=== PATIENT | female | born 1950 | race African-American/Black ===

== ENCOUNTER 2016-12-10 20:05 | Inpatient (IN) | payer BC ==
[2016-12-10 20:10] VITALS: BMI 41.9
--- NOTE | 2016-12-10 20:54 | PDOC ---
History of Present Illness - General History Source: Patient Exam Limitations: No Limitations - History of Present Illness Initial Comments: 12/10/16 21:19 The patient is a 66 year old female with a significant past medical history of HTN, HLD, and diabetes who presents to the ED with complaint of abdominal pain, nausea, and vomiting for 4 days. The patient reports an onset of mid epigastric pain radiating to her mid upper quadrant on Monday. She reports multiple episodes of nausea and vomiting. She states she is vomiting a yellow-like bile and her food. Patient reports she is unable to retain any food, including soup or jello, secondary to vomiting. She also reports one dizzy spell associated with present symptoms. Denies fevers or chills. Denies dysuria or changes in urinary output. Denies chest pain or shortness of breath. Denies hematochezia or hemoptysis. Denies any other symptoms Surgical hx: Appendicitis, tubal ligation Social hx: The patient is a smoker. PMD: Dr. Wyatt <Shilpa Stein - Last Filed: 12/10/16 21:19> <Renetta Crockett - Last Filed: 12/11/16 06:59> - General Chief Complaint: Nausea/Vomiting Stated Complaint: NAUSEA/VOMITING Time Seen by Provider: 12/10/16 20:50 Past History <Shilpa Stein - Last Filed: 12/10/16 21:19> - Past Medical History Diabetes: Yes HTN: Yes HIV: Yes Other medical history: glaucoma - Surgical History Appendectomy: Yes - Psycho/Social/Smoking Cessation Hx Suicidal Ideation: No Smoking History: Current every day smoker Number of Cigarettes Smoked Daily: 10 Information on smoking cessation initiated: No <Renetta Crockett - Last Filed: 12/11/16 06:59> - Past Medical History Allergies/Adverse Reactions: Allergies Allergy/AdvReac Type Severity Reaction Status Date / Time No Known Allergies Allergy Verified 12/10/16 20:10 Home Medications: Ambulatory Orders Glimepiride [Amaryl -] 4 mg PO BID 12/10/16 Glyburide [Diabeta -] 10 mg PO BID 12/10/16 Insulin NPH Human Isophane [Humulin N] 12 unit SQ BID 12/10/16 Lisinopril/Hydrochlorothiazide [Lisinopril-Hctz 20-25 mg Tab] 1 each PO DAILY Metformin HCl [Glucophage -] 850 mg PO TID 12/10/16 Omeprazole 20 mg PO PRN 12/10/16 Simvastatin 20 mg PO HS 12/10/16 Review of Systems - Review of Systems Able to Perform ROS?: Yes Comments:: 12/10/16 21:19 CONSTITUTIONAL: Absent: fever, chills, diaphoresis, generalized weakness, malaise, loss of appetite HEENT: Absent: rhinorrhea, nasal congestion, throat pain, throat swelling, difficulty swallowing, mouth swelling, ear pain, eye pain, visual Changes CARDIOVASCULAR: Absent: chest pain, syncope, palpitations, irregular heart rate, lightheadedness , peripheral edema RESPIRATORY: Absent: cough, shortness of breath, dyspnea with exertion, orthopnea, wheezing, stridor, hemoptysis GASTROINTESTINAL: + abdominal pain , nausea, vomiting Absent: abdominal distension, diarrhea, constipation, melena, hematochezia GENITOURINARY: Absent: dysuria, frequency, urgency, hesitancy, hematuria, flank pain, genital pain MUSCULOSKELETAL: Absent: myalgia, arthralgia, joint swelling SKIN: Absent: rash, itching, pallor HEMATOLOGIC/IMMUNOLOGIC: Absent: easy bleeding, easy bruising, lymphadenopathy, frequent infections ENDOCRINE: Absent: unexplained weight gain, unexplained weight loss, heat intolerance, cold intolerance NEUROLOGIC: + dizziness Absent: headache, focal weakness or paresthesias, unsteady gait, seizure, mental status changes, bladder or bowel incontinence PSYCHIATRIC: Absent: anxiety, depression, suicidal or homicidal ideation, hallucinations. All Other Systems: Reviewed and Negative <Shilpa Stein - Last Filed: 12/10/16 21:19> *Physical Exam - Vital Signs Last Vital Signs Temp Pulse Resp BP Pulse Ox 98.2 F 112 H 20 160/114 99 12/10/16 20:07 12/10/16 20:07 12/10/16 20:07 12/10/16 20:07 12/10/16 20:07 - Physical Exam Comments: 12/10/16 21:20 GENERAL: + Morbidly Obese. Awake and alert. No acute distress. HEENT: Normocephalic, atraumatic. PERRLA, EOMI. No conjunctival pallor. Sclera are non- icteric. Moist mucous membranes. Oropharynx is clear. NECK: Supple. Full ROM. No JVD. Carotid pulses 2+ and symmetric, without bruits. No thyromegaly. NCo lymphadenopathy. CARDIOVASCULAR: Regular rate and rhythm. No murmurs, rubs, or gallops. Distal pulses are 2+ and symmetric. PULMONARY: No evidence of respiratory distress. Lungs clear to auscultation bilaterally. No wheezing, rales or rhonchi. ABDOMINAL: + diffusely tender in the mid and right upper quadrant. Soft. Non-distended. No rebound or guarding. No organomegaly. Normoactive bowel sounds. MUSCULOSKELETAL Normal range of motion at all joints. No bony deformities or tenderness. No CVA tenderness. EXTREMITIES: No cyanosis. No clubbing. No edema. No calf tenderness. SKIN: Warm and dry. Normal capillary refill. No rashes. No jaundice. NEUROLOGICAL: Alert, awake, appropriate. Cranial nerves 2-12 intact. No deficits to light touch and temperature in face, upper extremities and lower extremities. No motor deficits in the in face, upper extremities and lower extremities. Normoreflexic in the upper and lower extremities. Normal speech. Toes are down- going bilaterally. Gait is normal without ataxia. PSYCHIATRIC: Cooperative. Good eye contact. Appropriate mood and affect. <Shilpa Stein - Last Filed: 12/10/16 21:19> - Vital Signs Last Vital Signs Temp Pulse Resp BP Pulse Ox 98.2 F 112 H 20 160/114 99 12/10/16 20:07 12/10/16 20:07 12/10/16 20:07 12/10/16 20:07 12/10/16 20:07 <Renetta Crockett - Last Filed: 12/11/16 06:59> ED Treatment Course - LABORATORY CBC & Chemistry Diagram: 12/10/16 21:30 12/10/16 23:40 <Renetta Crockett - Last Filed: 12/11/16 06:59> Medical Decision Making - Medical Decision Making 12/11/16 01:22 Pt comes with nausea and vomiting x 3 days, now with epigastric pain. She has EKG changes inferior flipped T waves. Troponin just came back positive - 1st specimen hemolyzed. RUQ pain, but sono GB is normal. CT abd pelvis still pending. Pt will be treated with lovenox and aspirin and a beta carla and she will be admitted to the telemetry unit. 12/11/16 01:55 Patient Name: Radha Blair THIS IS A PRELIMINARYREPORT FROM [facility] [employer] [facility] EXAM: CT abdomen and pelvis without contrast IMAGES: 511 INDICATION: Colitis. Rule out ileus or obstruction. DATE OF SERVICE: 2016-12-11 01:28:39.0 COMPARISON: none FINDINGS: Lung bases are clear. The visualized cardiac chambers are normal size and configuration. Normal unenhanced liver, gallbladder , pancreas, spleen, adrenal glands and kidneys. Small hiatal hernia is noted. The abdominal small and large bowel are normal. There is no aortic aneurysm. There is no significant retroperitoneal lymphadenopathy. Tiny fat containing umbilical hernia is noted. The pelvic small and large bowel are normal. There is no evidence of appendicitis, although the appendix is not clearly visualized. The uterus and adnexal structures are normal. Urinary bladder is unremarkable. There is no pelvic free fluid. No discrete pelvic lymphadenopathy is identified. IMPRESSION: No localizing signs for acute pathology. THIS DOCUMENT HAS BEEN ELECTRONICALLY SIGNED 12/11/16 06:58 Pt's 2nd cardiac enzyme is positive also. She is still awaiting a telemetry bed. <Renetta Crockett - Last Filed: 12/11/16 06:59> *DC/Admit/Observation/Transfer - Attestations Scribe Attestion: 12/10/16 21:20 Documentation prepared by Shilpa Stein, acting as medical transcription radiology for Renetta Crockett MD <Shilpa Stein - Last Filed: 12/10/16 21:19> - Discharge Dispostion Admit: Yes <Renetta Crockett - Last Filed: 12/11/16 06:59> Diagnosis at time of Disposition: Nausea & vomiting, Myocardial infarction, Ischemia, HTN (hypertension), Diabetes, Hypercholesterolemia, Morbid obesity
[2016-12-10] MEDS ORDERED: FAMOTIDINE 20 MG/50 ML IVPB 50 ML IVPB ONE ×2 (20:55→21:03)
[2016-12-10] MEDS ORDERED: ONDANSETRON 4 MG/2 ML VIAL IVPB ONE (20:55)
[2016-12-10] MEDS ORDERED: SODIUM CHLORIDE 0.9% 500 ML INFUS.BAG IV ONE (20:56)
[2016-12-10] MEDS ORDERED: dilTIAZem HCL 50 MG/10 ML - 10 ML VIAL IVPUSH ONE (20:56)
[2016-12-10] MEDS ORDERED: dilTIAZem HCL 125 MG/25 ML - 25 ML VIAL ONE (21:03)
[2016-12-10] MEDS ORDERED: ONDANSETRON 4 MG/2 ML VIAL ONE (21:03)
[2016-12-10 21:38] LABS: BASOPHIL 1.1 % (0-2.0); EOSINOPHIL 0.3 % (0-4.5); MCH 29.8 pg (25.7-33.7); MCHC 32.8 g/dl (32.0-36.0); MEAN CELL VOLUME 90.8 fl (80-96); MEAN PLT VOLUME 7.7 fl (7.5-11.1); NEUTROPHILS 68.7 % (42.8-82.8); PLATELET COUNT 342 K/MM3 (134-434); RDW 14.2 % (11.6-15.6); WHITE BLOOD COUNT 8.7 K/mm3 (4.0-10.0)
[2016-12-10] MEDS ORDERED: morphine CARPU-JECT 2 MG/1 ML DISP.SYRIN IVPUSH ONE (21:53)
[2016-12-10] MEDS ORDERED: morphine CARPU-JECT 2 MG/1 ML DISP.SYRIN ONE (21:58)
[2016-12-11 00:20] LABS: ALBUMIN 3.9 g/dl (3.4-5.0); ANION GAP 14 (8-16); BILIRUBIN,TOTAL 0.6 mg/dL (0.2-1.0); CALCIUM 9.5 mg/dL (8.5-10.1); CO2 27 mmol/L (21-32); COCKROFT - GAULT 117.5635; CREATININE 0.9 mg/dL (0.55-1.02); GLUCOSE,RANDOM 271 mg/dL (74-106); SGOT/AST 13 U/L (15-37); SGPT/ALT 18 U/L (12-78)
[2016-12-11 00:21] LABS: ALK PHOS 83 U/L (45-117)
[2016-12-11 00:50] LABS: TROPONIN I 0.12 ng/ml (0.00-0.05)
[2016-12-11] MEDS ORDERED: ASPIRIN 81 MG CHEWABLE TABLETS PO ONE (01:19)
[2016-12-11] MEDS ORDERED: METOPROLOL TARTRATE 50 MG TABLET (FP) PO ONE (01:22)
[2016-12-11] MEDS ORDERED: ASPIRIN 81 MG CHEWABLE TABLETS ONE (01:26)
[2016-12-11] MEDS ORDERED: ENOXAPARIN NA (PORCINE) 60 MG/0.6 ML DISP.SYRIN SQ ONE (01:26)
[2016-12-11] MEDS ORDERED: ENOXAPARIN NA (PORCINE) 120 MG/0.8 ML DISP.SYRIN SQ SCH (01:30)
[2016-12-11] MEDS ORDERED: METOPROLOL TARTRATE 50 MG TABLET (FP) ONE (01:51)
[2016-12-11 06:04] LABS: TROPONIN I 0.13 ng/ml (0.00-0.05)
--- NOTE | 2016-12-11 08:35 | CON.CARD ---
Consult Consult Specialty:: Cardiology - History of Present Illness Chief Complaint: epigastric pain History of Present Illness: he patient is a 66 year old female with a significant past medical history of HTN, HLD, and diabetes who presents to the ED with complaint of abdominal pain, nausea, and vomiting for 4 days. The patient reports an onset of mid epigastric pain radiating to her mid upper quadrant on Monday. She reports multiple episodes of nausea and vomiting. She states she is vomiting a yellow-like bile and her food. Patient reports she is unable to retain any food, including soup or jello, secondary to vomiting. She also reports one dizzy spell associated with present symptoms. Denies fevers or chills. Denies dysuria or changes in urinary output. Denies chest pain or shortness of breath. Denies hematochezia or hemoptysis. Denies any other symptoms Surgical hx: Appendicitis, tubal ligation Social hx: The patient is a smoker. PMD: Dr. Wyatt - Past Medical History Cardio/Vascular: Yes: HTN, Hyperlipdemia Endocrine: Yes: Diabetes Mellitus - Smoking History Smoking history: Current every day smoker Aproximately how many cigarettes per day: 10 Home Medications - Allergies Allergies/Adverse Reactions: Allergies Allergy/AdvReac Type Severity Reaction Status Date / Time No Known Allergies Allergy Verified 12/10/16 20:10 - Home Medications Home Medications: Ambulatory Orders Glimepiride [Amaryl -] 4 mg PO BID 12/10/16 Glyburide [Diabeta -] 10 mg PO BID 12/10/16 Insulin NPH Human Isophane [Humulin N] 12 unit SQ BID 12/10/16 Lisinopril/Hydrochlorothiazide [Lisinopril-Hctz 20-25 mg Tab] 1 each PO DAILY Metformin HCl [Glucophage -] 850 mg PO TID 12/10/16 Omeprazole 20 mg PO PRN 12/10/16 Simvastatin 20 mg PO HS 12/10/16 Review of Systems - Review of Systems Constitutional: reports: No Symptoms Eyes: reports: No Symptoms HENT: reports: No Symptoms Neck: reports: No Symptoms Cardiovascular: reports: No Symptoms Gastrointestinal: reports: Abdominal Pain, Nausea, Vomiting Genitourinary: reports: No Symptoms Breasts: reports: No Symptoms Reported Musculoskeletal: reports: No Symptoms Integumentary: reports: No Symptoms Neurological: reports: No Symptoms Endocrine: reports: No Symptoms Hematology/Lymphatic: reports: No Symptoms Psychiatric: reports: No Symptoms Vital Signs: Vital Signs Temperature 98 F 12/11/16 06:44 Pulse Rate 71 12/11/16 06:44 Respiratory Rate 17 12/11/16 06:44 Blood Pressure 160/83 12/11/16 06:44 O2 Sat by Pulse Oximetry (%) 99 12/11/16 06:44 Constitutional: Yes: Well Nourished, No Distress, Calm Eyes: Yes: WNL, Conjunctiva Clear, EOM Intact HENT: Yes: WNL, Atraumatic, Normocephalic Neck: Yes: WNL, Supple, Trachea Midline Respiratory: Yes: WNL, Regular, CTA Bilaterally Gastrointestinal: Yes: WNL, Normal Bowel Sounds Renal/: Yes: WNL Cardiovascular: Yes: WNL, Regular Rate and Rhythm Musculoskeletal: Yes: WNL Extremities: Yes: WNL Integumentary: Yes: WNL Neurological: Yes: WNL, Alert, Oriented ...Motor Strength: WNL Psychiatric: Yes: WNL, Alert, Oriented - Other Data Labs, Other Data: Troponin, BNP 12/11/16 05:31 Troponin I 0.13 H Troponin, BNP 12/11/16 05:31 Troponin I 0.13 H Imaging - Results Chest X-ray: Pending EKG: Image Reviewed (sr judson mcwilliams) Problem List - Problems (1) Diabetes Code(s): E11.9 - TYPE 2 DIABETES MELLITUS WITHOUT COMPLICATIONS (2) HTN (hypertension) Code(s): I10 - ESSENTIAL (PRIMARY) HYPERTENSION (3) Hypercholesterolemia Code(s): E78.00 - PURE HYPERCHOLESTEROLEMIA, UNSPECIFIED (4) Ischemia Code(s): I99.8 - OTHER DISORDER OF CIRCULATORY SYSTEM (5) Morbid obesity Code(s): E66.01 - MORBID (SEVERE) OBESITY DUE TO EXCESS CALORIES (6) Myocardial infarction Code(s): I21.3 - ST ELEVATION (STEMI) MYOCARDIAL INFARCTION OF UNSP SITE (7) Nausea & vomiting Code(s): R11.2 - NAUSEA WITH VOMITING, UNSPECIFIED Assessment/Plan abd pain abn ekg unchange from yestreday - lead placement . No chnge in lateral leads from 2010. new IW leads changes ? LVH rep abn borderline elevated TNIs nl ck dm x 25 yars htn hld gi eval Plan r/o acs lovonox bb iv ntg asa/plavic cycle enzymes if tni increse will need urgent c. cath GI eval
[2016-12-11] MEDS ORDERED: ONDANSETRON 4 MG/2 ML VIAL IVPUSH PRN (09:38)
[2016-12-11] MEDS ORDERED: SODIUM CHLORIDE 0.45% 1,000 ML IV SCH (09:45)
[2016-12-11] MEDS: NITROGLYCERIN 25MG/D5W 250ML 250 ML IVPB SCH (09:50)
[2016-12-11] MEDS: ENOXAPARIN NA (PORCINE) 120 MG/0.8 ML DISP.SYRIN SQ SCH ×2 (09:50→22:50)
[2016-12-11] MEDS ORDERED: ONDANSETRON 4 MG/2 ML VIAL ONE (09:53)
[2016-12-11] MEDS ORDERED: ENOXAPARIN NA (PORCINE) 40 MG/0.4 ML DISP.SYRIN SQ ONE (09:53)
[2016-12-11] MEDS ORDERED: NITROGLYCERIN 25MG/D5W 250ML 250 ML IVPB ONE (09:53)
[2016-12-11] MEDS ORDERED: ENOXAPARIN NA (PORCINE) 100 MG/1 ML DISP.SYRIN SQ ONE (09:53)
[2016-12-11] MEDS ORDERED: CLOPIDOGREL BISULFATE 300 MG TABLET PO ONE (10:00)
[2016-12-11] MEDS ORDERED: PANTOPRAZOLE 40 MG TABLET (FP) PO SCH (10:00)
--- NOTE | 2016-12-11 10:46 | HP ---
DATE OF ADMISSION: 12/11/2016 CHIEF COMPLAINT: Nausea and vomiting. HISTORY OF PRESENT ILLNESS: This is a 67-year-old lady with past medical history of hypertension, diabetes, hypercholesterolemia, smoking. She came to ER with a 3-day history of unable to eat anything and nausea and vomiting. In the ER, she was given medicine for nausea and vomiting and blood work was done and she had high troponin and cardiac enzyme borderline high. She denies any chest pain. She also had a CT scan in the ER, which was normal, and also ultrasound of the abdomen, which was normal as well. She was admitted to the hospital for nausea and vomiting and also axt-[id number]-pqlcyygue myocardial infarction. PAST MEDICAL HISTORY: As above. No drug allergies. She lives with her family and she is a smoker and she retired from [employer]. REVIEW OF SYSTEMS: Positive for nausea and vomiting. Negative for chest pain, shortness of breath. Positive for diabetes, positive for hyperlipidemia. Negative for stroke, skin rash, or anything else. PHYSICAL EXAMINATION: General: A middle-aged woman, lying in bed comfortable. Vital Signs: Blood pressure 135/80, respirations 12, temperature 98. HEENT: NAD. Neck: Supple. No JVD. Thyroid not enlarged. Carotids with no bruit. Chest: Bilaterally symmetrical. Heart: S1, S2 positive. Abdomen: Soft, nontender. No organomegaly. Extremities: Negative cyanosis, clubbing, edema. LABORATORIES IN THE HOSPITAL: White cells normal. Chemistry: Sugar is high, but kidneys are normal, but she has a troponin, first set, was 12.12; normal is under 0.10; and second 0.13. Also, she has high CK as well. ASSESSMENT: 1. Nausea, vomiting, possible gastrointestinal symptoms. 2. [id number] myocardial infarction. 3. Diabetes. 4. Hypertension. 5. Hyperlipidemia. PLAN: Admit to the hospital. Cardiac consult, Dr. Laws. We also called GI consult. Start her on Protonix p.o., IV fluids, Zofran. Renew her medications, insulin coverage, IV nitroglycerin, and Plavix, aspirin, and Crestor medication. We will follow. Fran [id number]
[2016-12-11] MEDS ORDERED: HEMOQUE TEST 1 EACH EACH ONE (11:39)
[2016-12-11] MEDS: INSULIN SLIDING SCALE (NOVOLOG) 1 VIAL SQ SCH ×3 (11:45→22:49)
[2016-12-11] MEDS: ASPIRIN 325 MG TABLET PO SCH (11:50)
[2016-12-11] MEDS ORDERED: METOPROLOL SUCCINATE 50 MG TAB.SR.24H (FP) ONE (11:50)
[2016-12-11] MEDS ORDERED: PANTOPRAZOLE 40 MG TABLET (FP) ONE (11:50)
[2016-12-11] MEDS: METOPROLOL SUCCINATE 50 MG TAB.SR.24H (FP) PO SCH (11:50)
[2016-12-11] MEDS ORDERED: ASPIRIN 325 MG TABLET ONE (11:51)
[2016-12-11] MEDS ORDERED: INSULIN (NOVOLOG) ASPART 100 UNITS/ML 10ML VIAL ONE ×2 (11:52→17:52)
[2016-12-11] MEDS: CLOPIDOGREL BISULFATE 75 MG TABLET (FP) PO SCH (12:03)
[2016-12-11 12:18] LABS: TROPONIN I 0.14 ng/ml (0.00-0.05)
[2016-12-11 13:42] LABS: INR 1.21 (0.82-1.09); PROTHROMBIN TIME (PATIENT) 13.4 SEC (9.98-11.88)
--- NOTE | 2016-12-11 14:49 | CON.GI ---
Consult Consult Specialty:: GI Referred by:: Dr Wyatt Reason for Consultation:: abdominal pain, nausea and vomiting - History of Present Illness Chief Complaint: abdominal pain, N/V History of Present Illness: 66 F with h/o metabolic syndrome admitted with 5 day h/o abdominal pain, N/V. States unable to tolerate liquids at this point. No blood in stool or vomitus. She states the pain preceded the vomiting. - History Source History Provided By: Patient Limitations to Obtaining History: No Limitations - Past Medical History Cardio/Vascular: Yes: HTN, Hyperlipdemia Pulmonary: Yes: COPD Gastrointestinal: Yes: GERD Endocrine: Yes: Diabetes Mellitus - Smoking History Smoking history: Current every day smoker Aproximately how many cigarettes per day: 10 Home Medications - Allergies Allergies/Adverse Reactions: Allergies Allergy/AdvReac Type Severity Reaction Status Date / Time No Known Allergies Allergy Verified 12/10/16 20:10 - Home Medications Home Medications: Ambulatory Orders Glimepiride [Amaryl -] 4 mg PO BID 12/10/16 Glyburide [Diabeta -] 10 mg PO BID 12/10/16 Insulin NPH Human Isophane [Humulin N] 12 unit SQ BID 12/10/16 Lisinopril/Hydrochlorothiazide [Lisinopril-Hctz 20-25 mg Tab] 1 each PO DAILY Metformin HCl [Glucophage -] 850 mg PO TID 12/10/16 Omeprazole 20 mg PO PRN 12/10/16 Simvastatin 20 mg PO HS 12/10/16 Physical Exam-GI Vital Signs: Vital Signs Temperature 98 F 12/11/16 06:44 Pulse Rate 88 12/11/16 11:50 Respiratory Rate 19 12/11/16 11:50 Blood Pressure 132/88 12/11/16 11:50 O2 Sat by Pulse Oximetry (%) 97 12/11/16 11:50 Constitutional: Yes: Obese HENT: Yes: Normocephalic Cardiovascular: Yes: Regular Rate and Rhythm Respiratory: Yes: CTA Bilaterally Gastrointestinal Inspection: Yes: WNL, Scars ...Auscultate: Yes: Normoactive Bowel Sounds ...Palpate: Yes: Soft, Tenderness, Tenderness, Epigastium (and RUQ) Labs: INR, PTT INR 1.21 (0.82-1.09) H 12/11/16 13:10 CBC, BMP 12/10/16 21:30 12/10/16 23:40 Hepatic Panel Total Bilirubin 0.6 mg/dL (0.2-1.0) 12/10/16 23:40 AST 13 U/L (15-37) L 12/10/16 23:40 ALT 18 U/L (12-78) 12/10/16 23:40 Alkaline Phosphatase 83 U/L (45-117) 12/10/16 23:40 Albumin 3.9 g/dl (3.4-5.0) 12/10/16 23:40 Imaging - Results Cat Scan: Report Reviewed (pending) Ultrasound: Report Reviewed (pending) Problem List - Problems (1) HTN (hypertension) Code(s): I10 - ESSENTIAL (PRIMARY) HYPERTENSION (2) Ischemia Code(s): I99.8 - OTHER DISORDER OF CIRCULATORY SYSTEM (3) Morbid obesity Code(s): E66.01 - MORBID (SEVERE) OBESITY DUE TO EXCESS CALORIES (4) Myocardial infarction Code(s): I21.3 - ST ELEVATION (STEMI) MYOCARDIAL INFARCTION OF UNSP SITE (5) Nausea & vomiting Code(s): R11.2 - NAUSEA WITH VOMITING, UNSPECIFIED Assessment/Plan Patient with metabolic syndrome, COPD-active smoker admitted with abdominal pain , N/V. Of note, troponins gradually trending up. Problem possibly: Pancreatitis secondary to elevated triglycerides. Unlikely with nornal lipase. Will check triglycerides. Follow CT results PUD-no bleeding noted. Start protonix drip ACS-started on plavix and ASA. Follow troponins NPO for now. If problem fails to resolve may need EGD
[2016-12-11] MEDS ORDERED: PANTOPRAZOLE SODIUM 40 MG VIAL ONE (16:01)
[2016-12-11] MEDS: PANTOPRAZOLE SODIUM 80 MG in SODIUM CHLORIDE 100 ML IVPB SCH (16:05)
[2016-12-12] MEDS ORDERED: ACETAMINOPHEN 325 MG TABLET (FP) PO PRN (00:41)
[2016-12-12] MEDS: PANTOPRAZOLE SODIUM 80 MG in SODIUM CHLORIDE 100 ML IVPB SCH ×3 (01:42→21:28)
[2016-12-12] MEDS: INSULIN SLIDING SCALE (NOVOLOG) 1 VIAL SQ SCH ×4 (06:16→21:28)
[2016-12-12 08:20] LABS: BASOPHIL 0.2 % (0-2.0); MEAN CELL VOLUME 90.9 fl (80-96); MEAN PLT VOLUME 7.5 fl (7.5-11.1); NEUTROPHILS 64.2 % (42.8-82.8); PLATELET COUNT 320 K/MM3 (134-434); RDW 13.2 % (11.6-15.6); WHITE BLOOD COUNT 8.5 K/mm3 (4.0-10.0)
[2016-12-12 08:23] LABS: ALBUMIN 3.4 g/dl (3.4-5.0); ALK PHOS 74 U/L (45-117); ANION GAP 14 (8-16); BILIRUBIN,TOTAL 0.9 mg/dL (0.2-1.0); CALCIUM 9.8 mg/dL (8.5-10.1); CO2 26 mmol/L (21-32); COCKROFT - GAULT 151.1555; CREATININE 0.7 mg/dL (0.55-1.02); GLUCOSE,RANDOM 243 mg/dL (74-106); SGOT/AST 13 U/L (15-37); SGPT/ALT 17 U/L (12-78); TOT PROT 7.3 g/dl (6.4-8.2)
--- NOTE | 2016-12-12 09:18 | EKG ---
Test Reason : Blood Pressure : / mmHG Vent. Rate : 084 BPM Atrial Rate : 084 BPM P-R Int : 158 ms QRS Dur : 086 ms QT Int : 410 ms P-R-T Axes : 066 -01 -86 degrees QTc Int : 484 ms NORMAL SINUS RHYTHM PROLONGED QT ABNORMAL ECG WHEN COMPARED WITH ECG OF 19-APR-2011 08:48, INVERTED T WAVES HAVE REPLACED NONSPECIFIC T WAVE ABNORMALITY IN INFERIOR LEADS Confirmed by TRISTEN MCCONNELL, SCOTTIE ([id number]) on 12/12/2016 9:17:50 AM Referred By: Confirmed By:SCOTTIE RAMON MD
--- NOTE | 2016-12-12 09:18 | EKG ---
Test Reason : Blood Pressure : / mmHG Vent. Rate : 071 BPM Atrial Rate : 071 BPM P-R Int : 170 ms QRS Dur : 092 ms QT Int : 440 ms P-R-T Axes : 053 -08 -73 degrees QTc Int : 478 ms NORMAL SINUS RHYTHM MINIMAL VOLTAGE CRITERIA FOR LVH, MAY BE NORMAL VARIANT T WAVE ABNORMALITY, CONSIDER INFERIOR ISCHEMIA T WAVE ABNORMALITY, CONSIDER ANTEROLATERAL ISCHEMIA PROLONGED QT ABNORMAL ECG WHEN COMPARED WITH ECG OF 10-DEC-2016 21:33, NO SIGNIFICANT CHANGE WAS FOUND Confirmed by SCOTTIE RAMON MD ([id number]) on 12/12/2016 9:18:17 AM Referred By: Confirmed By:SCOTTIE RAMON MD
--- NOTE | 2016-12-12 09:20 | PN ---
Progress Note, Physician Chief Complaint: still c/o abd pain no cp History of Present Illness: he patient is a 66 year old female with a significant past medical history of HTN, HLD, and diabetes who presents to the ED with complaint of abdominal pain, nausea, and vomiting for 4 days. The patient reports an onset of mid epigastric pain radiating to her mid upper quadrant on Monday. She reports multiple episodes of nausea and vomiting. She states she is vomiting a yellow-like bile and her food. Patient reports she is unable to retain any food, including soup or jello, secondary to vomiting. She also reports one dizzy spell associated with present symptoms. Denies fevers or chills. Denies dysuria or changes in urinary output. Denies chest pain or shortness of breath. Denies hematochezia or hemoptysis. Denies any other symptoms Surgical hx: Appendicitis, tubal ligation Social hx: The patient is a smoker. PMD: Dr. Wyatt - Current Medication List Current Medications: Active Medications Acetaminophen (Tylenol -) 650 mg PO Q4H PRN PRN Reason: FEVER OR PAIN Aspirin (Asa -) 325 mg PO DAILY [facility] Last Admin: 12/11/16 11:50 Dose: 325 mg Clopidogrel Bisulfate (Plavix -) 75 mg PO DAILY [facility] Last Admin: 12/11/16 12:03 Dose: Not Given Enoxaparin Sodium (Lovenox -) 120 mg SQ BID [facility] Last Admin: 12/11/16 22:50 Dose: 120 mg Nitroglycerin/Dextrose (Nitroglycerin 25mg/D5w 250ml) 250 mls @ 6 mls/hr IVPB TITR [facility] PRN Reason: 10 MCG/MIN Last Admin: 12/11/16 09:50 Dose: 6 mls/hr Pantoprazole Sodium 80 mg/ (Sodium Chloride) 100 mls @ 10 mls/hr IVPB Q10H [facility] PRN Reason: 8 MG/HR Last Admin: 12/12/16 01:42 Dose: 10 mls/hr Insulin Aspart (Novolog Vial Sliding Scale -) 1 vial SQ ACHS [facility] PRN Reason: Protocol Last Admin: 12/12/16 06:16 Dose: 2 units Metoprolol Succinate (Toprol Xl -) 50 mg PO DAILY [facility] Last Admin: 12/11/16 11:50 Dose: 50 mg Ondansetron HCl (Zofran Injection) 8 mg IVPUSH Q6H PRN PRN Reason: NAUSEA AND/OR VOMITING Last Admin: 12/11/16 09:50 Dose: 8 mg - Objective Vital Signs: Vital Signs Temperature 98.4 F 12/12/16 06:00 Pulse Rate 76 12/12/16 06:00 Respiratory Rate 18 12/12/16 06:00 Blood Pressure 143/80 12/12/16 06:00 O2 Sat by Pulse Oximetry (%) 98 12/11/16 22:17 Eyes: Yes: WNL, Conjunctiva Clear, EOM Intact HENT: Yes: WNL, Atraumatic, Normocephalic Neck: Yes: WNL, Supple, Trachea Midline Cardiovascular: Yes: WNL, Regular Rate and Rhythm Respiratory: Yes: WNL, Regular, CTA Bilaterally Gastrointestinal: Yes: Tenderness, Tenderness, Epigastrium Genitourinary: Yes: WNL Musculoskeletal: Yes: WNL Extremities: Yes: WNL Edema: No Integumentary: Yes: WNL Neurological: Yes: WNL, Alert, Oriented ...Motor Strength: WNL Psychiatric: Yes: WNL Labs: CBC, BMP 12/12/16 07:20 12/12/16 07:20 INR, PTT INR 1.21 (0.82-1.09) H 12/11/16 13:10 Laboratory Tests 12/10/16 12/10/16 12/10/16 21:21 21:30 23:40 WBC 8.7 RBC 4.57 Hgb 13.6 Hct 41.5 MCV 90.8 MCHC 32.8 RDW 14.2 Plt Count 342 MPV 7.7 Neutrophils % 68.7 Lymphocytes % 26.6 Monocytes % 3.3 L Eosinophils % 0.3 Basophils % 1.1 INR Sodium Cancelled 138 Potassium Cancelled 3.8 Chloride Cancelled 97 L Carbon Dioxide Cancelled 27 Anion Gap Cancelled 14 BUN Cancelled 13 Creatinine Cancelled 0.9 Creat Clearance w eGFR Cancelled > 60 POC Glucometer Random Glucose Cancelled 271 H Hemoglobin A1c % Calcium Cancelled 9.5 Total Bilirubin Cancelled 0.6 AST Cancelled 13 L ALT Cancelled 18 Alkaline Phosphatase Cancelled 83 Creatine Kinase Cancelled CK-MB (CK-2) Troponin I Cancelled Total Protein Cancelled 8.0 Albumin Cancelled 3.9 Total Amylase Cancelled Lipase Cancelled 12/10/16 12/11/16 12/11/16 23:40 05:31 11:30 WBC RBC Hgb Hct MCV MCHC RDW Plt Count MPV Neutrophils % Lymphocytes % Monocytes % Eosinophils % Basophils % INR Sodium Potassium Chloride Carbon Dioxide Anion Gap BUN Creatinine Creat Clearance w eGFR POC Glucometer Random Glucose Hemoglobin A1c % Calcium Total Bilirubin AST ALT Alkaline Phosphatase Creatine Kinase 199 H 188 203 H CK-MB (CK-2) 3.047 Troponin I 0.12 H 0.13 H 0.14 H Total Protein Albumin Total Amylase Lipase 12/11/16 12/11/16 12/11/16 13:00 13:10 22:41 WBC RBC Hgb Hct MCV MCHC RDW Plt Count MPV Neutrophils % Lymphocytes % Monocytes % Eosinophils % Basophils % INR 1.21 H Sodium Potassium Chloride Carbon Dioxide Anion Gap BUN Creatinine Creat Clearance w eGFR POC Glucometer 215 Random Glucose Hemoglobin A1c % Calcium Total Bilirubin AST ALT Alkaline Phosphatase Creatine Kinase CK-MB (CK-2) Troponin I Total Protein Albumin Total Amylase Lipase 104 12/12/16 12/12/16 12/12/16 05:41 07:20 07:20 WBC 8.5 RBC 4.10 Hgb 12.3 Hct 37.3 MCV 90.9 MCHC 33.0 RDW 13.2 Plt Count 320 MPV 7.5 Neutrophils % 64.2 Lymphocytes % 30.2 Monocytes % 5.4 Eosinophils % 0.0 D Basophils % 0.2 INR Sodium Potassium Chloride Carbon Dioxide Anion Gap BUN Creatinine Creat Clearance w eGFR POC Glucometer 231 Random Glucose Hemoglobin A1c % 7.0 H Calcium Total Bilirubin AST ALT Alkaline Phosphatase Creatine Kinase CK-MB (CK-2) Troponin I Total Protein Albumin Total Amylase Lipase 12/12/16 07:20 WBC RBC Hgb Hct MCV MCHC RDW Plt Count MPV Neutrophils % Lymphocytes % Monocytes % Eosinophils % Basophils % INR Sodium 137 Potassium 3.6 Chloride 97 L Carbon Dioxide 26 Anion Gap 14 BUN 16 D Creatinine 0.7 D Creat Clearance w eGFR > 60 POC Glucometer Random Glucose 243 H Hemoglobin A1c % Calcium 9.8 Total Bilirubin 0.9 D AST 13 L ALT 17 Alkaline Phosphatase 74 Creatine Kinase CK-MB (CK-2) Troponin I Total Protein 7.3 Albumin 3.4 Total Amylase Lipase Problem List - Problems (1) Diabetes Code(s): E11.9 - TYPE 2 DIABETES MELLITUS WITHOUT COMPLICATIONS (2) HTN (hypertension) Code(s): I10 - ESSENTIAL (PRIMARY) HYPERTENSION (3) Hypercholesterolemia Code(s): E78.00 - PURE HYPERCHOLESTEROLEMIA, UNSPECIFIED (4) Ischemia Code(s): I99.8 - OTHER DISORDER OF CIRCULATORY SYSTEM (5) Morbid obesity Code(s): E66.01 - MORBID (SEVERE) OBESITY DUE TO EXCESS CALORIES (6) Myocardial infarction Code(s): I21.3 - ST ELEVATION (STEMI) MYOCARDIAL INFARCTION OF UNSP SITE (7) Nausea & vomiting Code(s): R11.2 - NAUSEA WITH VOMITING, UNSPECIFIED Assessment/Plan abd pain abn ekg unchange from yestreday - lead placement . No chnge in lateral leads from 2011. new IW leads changes ? LVH rep abn borderline elevated TNIs nl ck dm x 25 yars htn hld gi consult appreciated Plan r/o acs lovonox bb iv ntg asa/plavic cycle enzymes ck neg tni borderline elevated awaiting CE and ekg this morning. If no changes will consider d/c NTG and lovonox
[2016-12-12] MEDS: ASPIRIN 325 MG TABLET PO SCH (10:15)
[2016-12-12] MEDS: METOPROLOL SUCCINATE 50 MG TAB.SR.24H (FP) PO SCH (10:15)
[2016-12-12] MEDS: CLOPIDOGREL BISULFATE 75 MG TABLET (FP) PO SCH (10:15)
[2016-12-12] MEDS: NITROGLYCERIN 25MG/D5W 250ML 250 ML IVPB SCH (10:16)
[2016-12-12] MEDS: ENOXAPARIN NA (PORCINE) 120 MG/0.8 ML DISP.SYRIN SQ SCH (10:16)
[2016-12-12 10:41] LABS: TROPONIN I 0.1 ng/ml (0.00-0.05)
--- NOTE | 2016-12-12 14:39 | PN ---
GI Progress Note Subjective: Patient with intractable nausea. Mild diffuse abdominal pain - Objective Vital Signs: Vital Signs Temperature 97.9 F 12/12/16 10:50 Pulse Rate 76 12/12/16 06:00 Respiratory Rate 18 12/12/16 10:50 Blood Pressure 153/96 12/12/16 10:50 O2 Sat by Pulse Oximetry (%) 98 12/12/16 09:00 Constitutional: Obese Labs: CBC, BMP 12/12/16 07:20 12/12/16 07:20 INR, PTT INR 1.21 (0.82-1.09) H 12/11/16 13:10 Assessment/Plan Nausea Zofran ordered Will also order reglan Minimal pain or tenderness CT reviewed-negative U/S negative for biliary issues Troponin trending down Rec: Zofran Meclizine Continue clears for now Continue PPI For now Procedure as opt when cardiac issues have resolved Problem List - Problems (1) HTN (hypertension) Code(s): I10 - ESSENTIAL (PRIMARY) HYPERTENSION (2) Ischemia Code(s): I99.8 - OTHER DISORDER OF CIRCULATORY SYSTEM (3) Morbid obesity Code(s): E66.01 - MORBID (SEVERE) OBESITY DUE TO EXCESS CALORIES (4) Myocardial infarction Code(s): I21.3 - ST ELEVATION (STEMI) MYOCARDIAL INFARCTION OF UNSP SITE (5) Nausea & vomiting Code(s): R11.2 - NAUSEA WITH VOMITING, UNSPECIFIED
[2016-12-12] MEDS ORDERED: MECLIZINE HCL 12.5 MG TABLET PO PRN (14:40)
[2016-12-12] MEDS: ONDANSETRON 4 MG/2 ML VIAL IVPUSH SCH ×2 (16:08→21:29)
--- NOTE | 2016-12-12 16:47 | PN ---
Progress Note, Physician Chief Complaint: Nausea and vomiting improving - Current Medication List Current Medications: Active Medications Acetaminophen (Tylenol -) 650 mg PO Q4H PRN PRN Reason: FEVER OR PAIN Aspirin (Asa -) 325 mg PO DAILY [facility] Last Admin: 12/12/16 10:15 Dose: 325 mg Clopidogrel Bisulfate (Plavix -) 75 mg PO DAILY [facility] Last Admin: 12/12/16 10:15 Dose: 75 mg Enoxaparin Sodium (Lovenox -) 40 mg SQ DAILY [facility] Pantoprazole Sodium 80 mg/ (Sodium Chloride) 100 mls @ 10 mls/hr IVPB Q10H [facility] PRN Reason: 8 MG/HR Last Admin: 12/12/16 13:49 Dose: 10 mls/hr Insulin Aspart (Novolog Vial Sliding Scale -) 1 vial SQ ACHS [facility] PRN Reason: Protocol Last Admin: 12/12/16 12:02 Dose: 2 units Meclizine HCl (Antivert -) 12.5 mg PO TID [facility] Metoprolol Succinate (Toprol Xl -) 50 mg PO DAILY [facility] Last Admin: 12/12/16 10:15 Dose: 50 mg Ondansetron HCl (Zofran Injection) 8 mg IVPUSH Q6H-IV [facility] Last Admin: 12/12/16 16:08 Dose: Not Given - Objective Vital Signs: Vital Signs Temperature 99.5 F 12/12/16 16:03 Pulse Rate 76 12/12/16 16:03 Respiratory Rate 20 12/12/16 16:03 Blood Pressure 158/85 12/12/16 16:03 O2 Sat by Pulse Oximetry (%) 98 12/12/16 09:00 Constitutional: Yes: No Distress Neck: Yes: Supple Cardiovascular: Yes: Regular Rate and Rhythm, S1, S2 Respiratory: Yes: CTA Bilaterally Gastrointestinal: Yes: Normal Bowel Sounds, Soft Neurological: Yes: Alert, Oriented. No: Loss of Sensation ...Motor Strength: WNL Labs: CBC, BMP 12/12/16 07:20 12/12/16 07:20 INR, PTT INR 1.21 (0.82-1.09) H 12/11/16 13:10 Problem List - Problems (1) Ischemia Assessment/Plan: Borderline troponins, ASA plavix Code(s): I99.8 - OTHER DISORDER OF CIRCULATORY SYSTEM (2) Nausea & vomiting Assessment/Plan: Improving with conservative management Code(s): R11.2 - NAUSEA WITH VOMITING, UNSPECIFIED Qualifiers: Vomiting type: unspecified Vomiting Intractability: unspecified Qualified Code(s): R11.2 - Nausea with vomiting, unspecified (3) Diabetes Assessment/Plan: Glucose in the 200's, monitor Code(s): E11.9 - TYPE 2 DIABETES MELLITUS WITHOUT COMPLICATIONS Qualifiers: Diabetes mellitus type: type 2 Diabetes mellitus complication status: without complication Diabetes mellitus fdc insulin use: with extermination supervisor use Qualified Code(s): E11.9 - Type 2 diabetes mellitus without complications; Z79.4 - senior living (current) use of insulin (4) HTN (hypertension) Assessment/Plan: High normal readings, monitor Code(s): I10 - ESSENTIAL (PRIMARY) HYPERTENSION Qualifiers: Hypertension type: essential hypertension Qualified Code(s): I10 - Essential (primary) hypertension
[2016-12-12] MEDS: MECLIZINE HCL 12.5 MG TABLET PO SCH (21:28)
[2016-12-13] MEDS: ONDANSETRON 4 MG/2 ML VIAL IVPUSH SCH ×4 (03:09→21:34)
[2016-12-13] MEDS: INSULIN SLIDING SCALE (NOVOLOG) 1 VIAL SQ SCH ×4 (06:33→21:34)
[2016-12-13] MEDS: MECLIZINE HCL 12.5 MG TABLET PO SCH ×3 (06:33→21:34)
--- NOTE | 2016-12-13 07:57 | PN ---
Progress Note (short form) - Note Progress Note: Feels much better, no vomiting or nausea overnight. NTG was discontinued yesterday. Minimally ambulatory. CBC, BMP 12/12/16 07:20 12/12/16 07:20 Vital Signs Period Temp Pulse Resp BP Sys/Ye Pulse Ox Last 24 Hr 97.9 F-99.5 F 76-91 18-20 152-160/79-97 95-98 S1S2 RRR +SM Lungs cta abd soft NT +BS no edema aaox3 Imp Intractable nausea/vomiting with slightly elevated troponins. Acute coronary syndrome? Hiatal hernia GERD? Diabetic gastropathy? HTN Hyperlipidemia DM for 25 yrs Plan add lissinopril, statin Echo today Stress test? will d/w cardiology EGD as outpt diet as tolerated
[2016-12-13] MEDS: ENOXAPARIN NA (PORCINE) 40 MG/0.4 ML DISP.SYRIN SQ SCH (09:03)
[2016-12-13] MEDS: METOPROLOL SUCCINATE 50 MG TAB.SR.24H (FP) PO SCH (09:03)
[2016-12-13] MEDS: LISINOPRIL 10 MG TABLET (FP) PO SCH ×2 (09:03→21:35)
[2016-12-13] MEDS: CLOPIDOGREL BISULFATE 75 MG TABLET (FP) PO SCH (09:03)
[2016-12-13] MEDS: ASPIRIN 325 MG TABLET PO SCH (09:03)
[2016-12-13] MEDS: PANTOPRAZOLE SODIUM 80 MG in SODIUM CHLORIDE 100 ML IVPB SCH ×2 (09:04→17:41)
--- NOTE | 2016-12-13 11:24 | PN ---
Progress Note, Physician Chief Complaint: Pt A&Ox3; denies chest pain or dsypnea. History of Present Illness: The patient is a 66 year old female with a significant past medical history of HTN, HLD, and diabetes, who presents to the ED with complaint of abdominal pain , nausea, and vomiting for 4 days. The patient reports an onset of mid epigastric pain radiating to her mid upper quadrant on Monday. She reports multiple episodes of nausea and vomiting. She states she is vomiting a yellow- like bile and her food. Patient reports she is unable to retain any food, including soup or jello, secondary to vomiting. She also reports one dizzy spell associated with present symptoms. Denies fevers or chills. Denies dysuria or changes in urinary output. Denies chest pain or shortness of breath. Denies hematochezia or hemoptysis. Denies any other symptoms Surgical hx: Appendicitis, tubal ligation Social hx: The patient is a smoker. PMD: Dr. Wyatt - Current Medication List Current Medications: Active Medications Acetaminophen (Tylenol -) 650 mg PO Q4H PRN PRN Reason: FEVER OR PAIN Aspirin (Asa -) 325 mg PO DAILY [facility] Last Admin: 12/13/16 09:03 Dose: 325 mg Atorvastatin Calcium (Lipitor -) 10 mg PO HS [facility] Clopidogrel Bisulfate (Plavix -) 75 mg PO DAILY [facility] Last Admin: 12/13/16 09:03 Dose: 75 mg Enoxaparin Sodium (Lovenox -) 40 mg SQ DAILY [facility] Last Admin: 12/13/16 09:03 Dose: 40 mg Pantoprazole Sodium 80 mg/ (Sodium Chloride) 100 mls @ 10 mls/hr IVPB Q10H [facility] PRN Reason: 8 MG/HR Last Admin: 12/13/16 09:04 Dose: 10 mls/hr Insulin Aspart (Novolog Vial Sliding Scale -) 1 vial SQ ACHS [facility] PRN Reason: Protocol Last Admin: 12/13/16 06:33 Dose: 2 units Lisinopril (Prinivil) 10 mg PO BID [facility] Last Admin: 12/13/16 09:03 Dose: 10 mg Meclizine HCl (Antivert -) 12.5 mg PO TID [facility] Last Admin: 12/13/16 06:33 Dose: 12.5 mg Metoprolol Succinate (Toprol Xl -) 50 mg PO DAILY [facility] Last Admin: 12/13/16 09:03 Dose: 50 mg Ondansetron HCl (Zofran Injection) 8 mg IVPUSH Q6H-IV [facility] Last Admin: 12/13/16 09:03 Dose: 8 mg - Objective Vital Signs: Vital Signs Temperature 98.1 F 12/13/16 10:28 Pulse Rate 86 12/13/16 10:28 Respiratory Rate 20 12/13/16 10:28 Blood Pressure 158/48 12/13/16 10:28 O2 Sat by Pulse Oximetry (%) 97 12/13/16 09:00 Constitutional: Yes: Calm Eyes: Yes: WNL HENT: Yes: WNL Neck: Yes: WNL Cardiovascular: Yes: Regular Rate and Rhythm Respiratory: Yes: Regular Gastrointestinal: Yes: Soft ...Rectal Exam: Yes: Deferred Genitourinary: No: Anuria Musculoskeletal: Yes: Muscle Weakness Extremities: Yes: Cool Edema: No Peripheral Pulses WNL: Yes Integumentary: Yes: WNL Neurological: Yes: Alert, Oriented Psychiatric: Yes: WNL Labs: CBC, BMP 12/12/16 07:20 12/12/16 07:20 INR, PTT INR 1.21 (0.82-1.09) H 12/11/16 13:10 Problem List - Problems (1) Diabetes Code(s): E11.9 - TYPE 2 DIABETES MELLITUS WITHOUT COMPLICATIONS Qualifiers: Diabetes mellitus type: type 2 Diabetes mellitus complication status: without complication Diabetes mellitus shelter insulin use: with shelter use Qualified Code(s): E11.9 - Type 2 diabetes mellitus without complications (2) HTN (hypertension) Code(s): I10 - ESSENTIAL (PRIMARY) HYPERTENSION Qualifiers: Hypertension type: essential hypertension Qualified Code(s): I10 - Essential (primary) hypertension (3) Hypercholesterolemia Code(s): E78.00 - PURE HYPERCHOLESTEROLEMIA, UNSPECIFIED (4) Morbid obesity Code(s): E66.01 - MORBID (SEVERE) OBESITY DUE TO EXCESS CALORIES (5) Nausea & vomiting Code(s): R11.2 - NAUSEA WITH VOMITING, UNSPECIFIED Qualifiers: Vomiting type: unspecified Vomiting Intractability: unspecified Qualified Code(s): R11.2 - Nausea with vomiting, unspecified (6) [place] cardiac risk >20% in next 10 years Assessment/Plan: TNI 0.1, not changing significantly; EKG NSR; LVH; new T wave changes. F/u fasting lipids and TSH. ECHO results pending. For stress MIBI in am (pt says she walks "a lot" daily while caring for a grandchild). Pt denies asthma. Code(s): Z91.89 - OTH PERSONAL RISK FACTORS, NOT ELSEWHERE CLASSIFIED
[2016-12-13] MEDS ORDERED: DIPYRIDAMOLE 50 MG/10 ML VIAL IVPB ONE (14:14)
--- NOTE | 2016-12-13 14:19 | EKG ---
Test Reason : Blood Pressure : / mmHG Vent. Rate : 070 BPM Atrial Rate : 070 BPM P-R Int : 158 ms QRS Dur : 086 ms QT Int : 452 ms P-R-T Axes : 057 -04 -50 degrees QTc Int : 488 ms NORMAL SINUS RHYTHM VOLTAGE CRITERIA FOR LEFT VENTRICULAR HYPERTROPHY PROLONGED QT ABNORMAL ECG WHEN COMPARED WITH ECG OF 11-DEC-2016 08:52, T WAVE VARIATION Confirmed by SERENE MCCONNELL, KEVON ([id number]) on 12/13/2016 2:18:58 PM Referred By: Sebastian SPRINGER Confirmed By:KEVON CAST MD
[2016-12-13] MEDS ORDERED: DIPYRIDAMOLE STRESS TEST 50 MG in DEXTROSE 5%-WATER - 40 ML IVPB ONE (15:00)
[2016-12-13 16:57] LABS: THYROID STIMULATING HORMONE 0.79 uIU/ml (0.358-3.74)
[2016-12-13] MEDS: ATORVASTATIN CA 10 MG TABLET (FP) PO SCH (21:34)
[2016-12-14] MEDS: ONDANSETRON 4 MG/2 ML VIAL IVPUSH SCH (03:11)
[2016-12-14] MEDS: INSULIN SLIDING SCALE (NOVOLOG) 1 VIAL SQ SCH ×4 (06:24→21:40)
[2016-12-14] MEDS: MECLIZINE HCL 12.5 MG TABLET PO SCH (06:24)
[2016-12-14] MEDS ORDERED: ONDANSETRON 4 MG/2 ML VIAL IVPUSH PRN (08:57)
[2016-12-14] MEDS ORDERED: MECLIZINE HCL 12.5 MG TABLET PO PRN (08:58)
--- NOTE | 2016-12-14 09:00 | PN ---
Progress Note (short form) - Note Progress Note: Feels much better, no vomiting or nausea overnight. Ate breakfast. Minimal ambulation. Vital Signs Period Temp Pulse Resp BP Sys/Ye Pulse Ox Last 24 Hr 97.6 F-98.9 F 86-106 18-20 145-174/48-116 96-97 S1S2 RRR +SM Lungs cta abd soft NT +BS no edema aaox3 Stress test diaphragmatic attenuation, no ischemia, low EF ~30 Echo mod severe reduction in EF ~30 Imp Intractable nausea/vomiting with slightly elevated troponins. Acute coronary syndrome? Hiatal hernia GERD? Diabetic gastropathy? HTN Hyperlipidemia DM for 25 yrs Plan Switch toprol to coreg continue lisinopril, statin PT eval for ambulation need for plavix? cardiology f/up
[2016-12-14] MEDS: LISINOPRIL 10 MG TABLET (FP) PO SCH ×2 (09:36→21:40)
[2016-12-14] MEDS: PANTOPRAZOLE 40 MG TABLET (FP) PO SCH ×2 (09:37→21:40)
[2016-12-14] MEDS: CARVEDILOL 12.5 MG TABLET (FP) PO SCH ×2 (09:37→21:40)
[2016-12-14] MEDS: CLOPIDOGREL BISULFATE 75 MG TABLET (FP) PO SCH (09:37)
[2016-12-14] MEDS: ENOXAPARIN NA (PORCINE) 40 MG/0.4 ML DISP.SYRIN SQ SCH (09:38)
--- NOTE | 2016-12-14 11:22 | PN ---
Progress Note, Physician Chief Complaint: still c/o abd pain no cp History of Present Illness: he patient is a 66 year old female with a significant past medical history of HTN, HLD, and diabetes who presents to the ED with complaint of abdominal pain, nausea, and vomiting for 4 days. The patient reports an onset of mid epigastric pain radiating to her mid upper quadrant on Monday. She reports multiple episodes of nausea and vomiting. She states she is vomiting a yellow-like bile and her food. Patient reports she is unable to retain any food, including soup or jello, secondary to vomiting. She also reports one dizzy spell associated with present symptoms. Denies fevers or chills. Denies dysuria or changes in urinary output. Denies chest pain or shortness of breath. Denies hematochezia or hemoptysis. Denies any other symptoms Surgical hx: Appendicitis, tubal ligation Social hx: The patient is a smoker. PMD: Dr. Wyatt - Current Medication List Current Medications: Active Medications Acetaminophen (Tylenol -) 650 mg PO Q4H PRN PRN Reason: FEVER OR PAIN Atorvastatin Calcium (Lipitor -) 10 mg PO HS [facility] Last Admin: 12/13/16 21:34 Dose: 10 mg Carvedilol (Coreg -) 12.5 mg PO BID [facility] Last Admin: 12/14/16 09:37 Dose: 12.5 mg Clopidogrel Bisulfate (Plavix -) 75 mg PO DAILY [facility] Last Admin: 12/14/16 09:37 Dose: 75 mg Enoxaparin Sodium (Lovenox -) 40 mg SQ DAILY [facility] Last Admin: 12/14/16 09:38 Dose: 40 mg Insulin Aspart (Novolog Vial Sliding Scale -) 1 vial SQ ACHS [facility] PRN Reason: Protocol Last Admin: 12/14/16 06:24 Dose: 2 units Lisinopril (Prinivil) 10 mg PO BID [facility] Last Admin: 12/14/16 09:36 Dose: 10 mg Meclizine HCl (Antivert -) 12.5 mg PO TID [facility] PRN Reason: NAUSEA Ondansetron HCl (Zofran Injection) 8 mg IVPUSH Q6H-IV [facility] PRN Reason: NAUSEA Pantoprazole Sodium (Protonix -) 40 mg PO BID [facility] Last Admin: 12/14/16 09:37 Dose: 40 mg - Objective Vital Signs: Vital Signs Temperature 98.7 F 12/14/16 08:20 Pulse Rate 106 H 12/14/16 08:20 Respiratory Rate 20 12/14/16 06:00 Blood Pressure 151/86 12/14/16 08:20 O2 Sat by Pulse Oximetry (%) 94 L 12/14/16 09:00 Eyes: Yes: WNL, Conjunctiva Clear, EOM Intact HENT: Yes: WNL, Atraumatic, Normocephalic Neck: Yes: WNL, Supple, Trachea Midline Cardiovascular: Yes: WNL, Regular Rate and Rhythm Respiratory: Yes: WNL, Regular, CTA Bilaterally Gastrointestinal: Yes: WNL, Normal Bowel Sounds Genitourinary: Yes: WNL Musculoskeletal: Yes: WNL Extremities: Yes: WNL Edema: No Integumentary: Yes: WNL Neurological: Yes: WNL, Alert, Oriented ...Motor Strength: WNL Psychiatric: Yes: WNL Labs: CBC, BMP 12/12/16 07:20 12/12/16 07:20 INR, PTT INR 1.21 (0.82-1.09) H 12/11/16 13:10 Problem List - Problems (1) Diabetes Code(s): E11.9 - TYPE 2 DIABETES MELLITUS WITHOUT COMPLICATIONS Qualifiers: Diabetes mellitus type: type 2 Diabetes mellitus complication status: without complication Diabetes mellitus joint terminal attack controller insulin use: with joint terminal attack controller use Qualified Code(s): E11.9 - Type 2 diabetes mellitus without complications (2) HTN (hypertension) Code(s): I10 - ESSENTIAL (PRIMARY) HYPERTENSION Qualifiers: Hypertension type: essential hypertension Qualified Code(s): I10 - Essential (primary) hypertension (3) Hypercholesterolemia Code(s): E78.00 - PURE HYPERCHOLESTEROLEMIA, UNSPECIFIED (4) Ischemia Code(s): I99.8 - OTHER DISORDER OF CIRCULATORY SYSTEM (5) Morbid obesity Code(s): E66.01 - MORBID (SEVERE) OBESITY DUE TO EXCESS CALORIES (6) Myocardial infarction Code(s): I21.3 - ST ELEVATION (STEMI) MYOCARDIAL INFARCTION OF UNSP SITE (7) Nausea & vomiting Code(s): R11.2 - NAUSEA WITH VOMITING, UNSPECIFIED Qualifiers: Vomiting type: unspecified Vomiting Intractability: unspecified Qualified Code(s): R11.2 - Nausea with vomiting, unspecified Assessment/Plan abd pain abn ekg unchange from yestreday - lead placement . No chnge in lateral leads from 2011. new IW leads changes ? LVH rep abn borderline elevated TNIs nl ck dm x 25 yars htn hld gi consult appreciated chf cmp ef 22% on echo no [place] on mibi Plan check SMA 7 add aldactone increased coreg and aceI to control bp d/c plavix start asa 81 for primary prevention ashd if no improvement of ef after 3 months of optimal rx (patient was not on beta blockers prior to admission) will need c. cath and ICD Zoll defibrilator vest to be considered in the meantime cont dvt plx
[2016-12-14] MEDS ORDERED: INSULIN (NOVOLOG) ASPART 100 UNITS/ML 10ML VIAL ONE ×2 (12:10→17:05)
[2016-12-14] MEDS: glyBURIDE 5 MG TABLET (UD) PO SCH (17:07)
[2016-12-14] MEDS: ATORVASTATIN CA 10 MG TABLET (FP) PO SCH (21:40)
[2016-12-14] MEDS ORDERED: glyBURIDE 5 MG TABLET (UD) PO SCH (22:00)
[2016-12-15] MEDS ORDERED: PT OWN MED DRAWER 7, Y5N ONE (06:38)
[2016-12-15] MEDS: INSULIN SLIDING SCALE (NOVOLOG) 1 VIAL SQ SCH ×4 (06:42→22:10)
[2016-12-15] MEDS: glyBURIDE 5 MG TABLET (UD) PO SCH ×2 (06:43→17:16)
[2016-12-15 08:17] LABS: BASOPHIL 0.5 % (0-2.0); EOSINOPHIL 1.2 % (0-4.5); MCH 30.1 pg (25.7-33.7); MCHC 33.3 g/dl (32.0-36.0); MEAN CELL VOLUME 90.3 fl (80-96); MEAN PLT VOLUME 7.4 fl (7.5-11.1); NEUTROPHILS 64.5 % (42.8-82.8); PLATELET COUNT 308 K/MM3 (134-434); RDW 13.7 % (11.6-15.6); WHITE BLOOD COUNT 10.9 K/mm3 (4.0-10.0)
[2016-12-15 08:46] LABS: ALBUMIN 3.3 g/dl (3.4-5.0); ALK PHOS 84 U/L (45-117); ANION GAP 13 (8-16); BILIRUBIN,TOTAL 0.9 mg/dL (0.2-1.0); CALCIUM 9.9 mg/dL (8.5-10.1); CO2 27 mmol/L (21-32); COCKROFT - GAULT 117.5635; CREATININE 0.9 mg/dL (0.55-1.02); GLUCOSE,RANDOM 270 mg/dL (74-106); SGOT/AST 18 U/L (15-37); SGPT/ALT 20 U/L (12-78); TOT PROT 7.2 g/dl (6.4-8.2)
--- NOTE | 2016-12-15 09:39 | PN ---
Progress Note, Physician Chief Complaint: Pt A&Ox3; denies chest pain or dsypnea; denies palpitations. History of Present Illness: The patient is a 66 year old black female with a significant past medical history of HTN, HLD, and diabetes, who presents to the ED with complaint of abdominal pain, nausea, and vomiting for 4 days. The patient reports an onset of mid epigastric pain radiating to her mid upper quadrant on Monday. She reports multiple episodes of nausea and vomiting. She states she is vomiting a yellow-like bile and her food. Patient reports she is unable to retain any food , including soup or jello, secondary to vomiting. She also reports one dizzy spell associated with present symptoms. Denies fevers or chills. Denies dysuria or changes in urinary output. Denies chest pain or shortness of breath. Denies hematochezia or hemoptysis. Denies any other symptoms Surgical hx: Appendicitis, tubal ligation Social hx: The patient is a smoker. PMD: Dr. Wyatt - Current Medication List Current Medications: Active Medications Acetaminophen (Tylenol -) 650 mg PO Q4H PRN PRN Reason: FEVER OR PAIN Aspirin (Ecotrin -) 81 mg PO DAILY [facility] Atorvastatin Calcium (Lipitor -) 10 mg PO HS [facility] Last Admin: 12/14/16 21:40 Dose: 10 mg Carvedilol (Coreg -) 12.5 mg PO BID [facility] Last Admin: 12/14/16 21:40 Dose: 12.5 mg Enoxaparin Sodium (Lovenox -) 40 mg SQ DAILY [facility] Last Admin: 12/14/16 09:38 Dose: 40 mg Glyburide (Diabeta -) 10 mg PO BIDAC [facility] Last Admin: 12/15/16 06:43 Dose: Not Given Insulin Aspart (Novolog Vial Sliding Scale -) 1 vial SQ ACHS [facility] PRN Reason: Protocol Last Admin: 12/15/16 06:42 Dose: 4 units Lisinopril (Prinivil) 10 mg PO BID [facility] Last Admin: 12/14/16 21:40 Dose: 10 mg Meclizine HCl (Antivert -) 12.5 mg PO TID PRN PRN Reason: NAUSEA Metformin HCl (Glucophage -) 850 mg PO TID [facility] Last Admin: 12/15/16 06:42 Dose: 850 mg Ondansetron HCl (Zofran Injection) 8 mg IVPUSH Q6H-IV PRN PRN Reason: NAUSEA Pantoprazole Sodium (Protonix -) 40 mg PO BID [facility] Last Admin: 12/14/16 21:40 Dose: 40 mg - Objective Vital Signs: Vital Signs Temperature 97.2 F L 12/15/16 06:00 Pulse Rate 89 12/15/16 06:00 Respiratory Rate 20 12/15/16 06:00 Blood Pressure 160/87 12/15/16 06:00 O2 Sat by Pulse Oximetry (%) 96 12/14/16 21:00 Constitutional: Yes: No Distress Eyes: Yes: WNL HENT: Yes: WNL Neck: Yes: WNL Cardiovascular: Yes: Regular Rate and Rhythm Respiratory: Yes: Regular Gastrointestinal: Yes: Soft ...Rectal Exam: Yes: Deferred Genitourinary: No: Anuria Breast(s): Yes: WNL Extremities: Yes: WNL Edema: No Peripheral Pulses WNL: Yes Integumentary: Yes: WNL Neurological: Yes: WNL Psychiatric: Yes: WNL Labs: CBC, BMP 12/15/16 06:00 12/15/16 06:00 INR, PTT INR 1.21 (0.82-1.09) H 12/11/16 13:10 - ....Imaging Other: Image Reviewed (telemetry: NSR; no significant pauses or arrhythymias) Problem List - Problems (1) Diabetes Assessment/Plan: Recommend considering addition of an SGLT-2 inhibitor for it's benefits in lowering cardiac events and overall mortality. Code(s): E11.9 - TYPE 2 DIABETES MELLITUS WITHOUT COMPLICATIONS Qualifiers: Diabetes mellitus type: type 2 Diabetes mellitus complication status: without complication Diabetes mellitus snf insulin use: with electromechanical technician use Qualified Code(s): E11.9 - Type 2 diabetes mellitus without complications (2) HTN (hypertension) Code(s): I10 - ESSENTIAL (PRIMARY) HYPERTENSION Qualifiers: Hypertension type: essential hypertension Qualified Code(s): I10 - Essential (primary) hypertension (3) Hypercholesterolemia Assessment/Plan: diet, exercise, and statin to keep LDL cholesterol < 70 mg/dL. Code(s): E78.00 - PURE HYPERCHOLESTEROLEMIA, UNSPECIFIED (4) Morbid obesity Code(s): E66.01 - MORBID (SEVERE) OBESITY DUE TO EXCESS CALORIES (5) Nausea & vomiting Code(s): R11.2 - NAUSEA WITH VOMITING, UNSPECIFIED Qualifiers: Vomiting type: unspecified Vomiting Intractability: unspecified Qualified Code(s): R11.2 - Nausea with vomiting, unspecified (6) [place] cardiac risk >20% in next 10 years Assessment/Plan: TNI 0.1, not changing significantly; EKG NSR; LVH; new T wave changes. F/u fasting lipids and TSH. ECHO results: moderate-severely reduced LVEF. Stress MIBI : no myocardial ischemia; reduced LVEF. Code(s): Z91.89 - OT PERSONAL RISK FACTORS, NOT ELSEWHERE CLASSIFIED (7) Dilated cardiomyopathy Assessment/Plan: etiology unclear (no alcohol; stress MIBI negative for ischemia; TSH WN; however , pt does have uncontrolled HTN). Plan: Optimize anti-CHF medicatrions (increase carvedilol and lisinopril doses; start spironolactone; hytdralazine and nitrate). Replete K; f/u Mg. Life-[employer] ([facility] being contacted). Follow up as outpatient; plan for coronary angiogram n 3 months, and consderation for ICD at that time. The importance of losing weight was reiterated. As discussed with Dr. Mccord, will r/o PE (tachycardia despite normal TSH and on Coreg) [facility] CTA. Code(s): I42.0 - DILATED CARDIOMYOPATHY
[2016-12-15] MEDS ORDERED: POTASSIUM CHLORIDE ORAL LIQUID 20 MEQ/15 ML ONE (09:50)
[2016-12-15] MEDS ORDERED: POTASSIUM CHLORIDE TABS 20 MEQ TABLET.ER (FP) PO ONE (09:52)
[2016-12-15] MEDS: ENOXAPARIN NA (PORCINE) 40 MG/0.4 ML DISP.SYRIN SQ SCH (09:55)
[2016-12-15] MEDS: SPIRONOLACTONE 25 MG TABLET (FP) PO SCH (09:55)
[2016-12-15] MEDS: CARVEDILOL 12.5 MG TABLET (FP) PO SCH ×2 (09:55→22:05)
[2016-12-15] MEDS: LISINOPRIL 10 MG TABLET (FP) PO SCH ×2 (09:55→22:05)
[2016-12-15] MEDS: ASPIRIN COATED 81 MG TABLET.EC PO SCH (09:56)
--- NOTE | 2016-12-15 09:59 | PN ---
Progress Note (short form) - Note Progress Note: No complaints, minimal ambulation. CBC, BMP 12/15/16 06:00 12/15/16 06:00 S1S2 RRR +SM Lungs cta abd soft NT +BS no edema aaox3 Vital Signs Period Temp Pulse Resp BP Sys/Ye Pulse Ox Last 24 Hr 97.2 F-99.4 F 89-97 20-20 130-160/76-96 96 HR on monitor consistently over 100-120 Stress test diaphragmatic attenuation, no ischemia, low EF ~30 Echo mod severe reduction in EF ~30 Imp Intractable nausea/vomiting with slightly elevated troponins-resolved. Cardiomopathy with reduced EF Tachycardia for past 2-3 days, despite recent increase in Bblocker use Hiatal hernia HTN Hyperlipidemia DM for [address] iv contrast r/o PE add aldactone, replete K repeat lytes in am encourage ambulation
[2016-12-15] MEDS: ATORVASTATIN CA 10 MG TABLET (FP) PO SCH (22:05)
[2016-12-16] MEDS: glyBURIDE 5 MG TABLET (UD) PO SCH ×2 (06:31→16:52)
[2016-12-16] MEDS: INSULIN SLIDING SCALE (NOVOLOG) 1 VIAL SQ SCH ×3 (06:33→16:53)
[2016-12-16 07:31] LABS: BASOPHIL 0.8 % (0-2.0); EOSINOPHIL 1.3 % (0-4.5); MCH 30.6 pg (25.7-33.7); MCHC 33.6 g/dl (32.0-36.0); MEAN PLT VOLUME 7.5 fl (7.5-11.1); NEUTROPHILS 63.2 % (42.8-82.8); PLATELET COUNT 328 K/MM3 (134-434); RDW 13.5 % (11.6-15.6); WHITE BLOOD COUNT 10.9 K/mm3 (4.0-10.0)
[2016-12-16 07:37] LABS: CALCIUM 9.8 mg/dL (8.5-10.1)
[2016-12-16 07:41] LABS: ALK PHOS 80 U/L (45-117); ANION GAP 15 (8-16); BILIRUBIN,TOTAL 0.8 mg/dL (0.2-1.0); CO2 26 mmol/L (21-32); CREATININE 0.8 mg/dL (0.55-1.02); GLUCOSE,RANDOM 241 mg/dL (74-106); SGOT/AST 13 U/L (15-37); SGPT/ALT 18 U/L (12-78); TOT PROT 6.7 g/dl (6.4-8.2)
--- NOTE | 2016-12-16 08:53 | PN ---
Progress Note (short form) - Note Progress Note: No complaints, minimal ambulation. CBC, BMP 12/16/16 05:35 12/16/16 05:35 S1S2 RRR +SM Lungs cta abd soft NT +BS no edema aaox3 Vital Signs Period Temp Pulse Resp BP Sys/Ye Pulse Ox Last 24 Hr 97.5 F-98.9 F 86-108 20-20 105-153/69-94 99 HR on monitor consistently over 100-120 Stress test diaphragmatic attenuation, no ischemia, low EF ~30 Echo mod severe reduction in EF ~30 CT r/o PE negative for PE Imp Intractable nausea/vomiting with slightly elevated troponins-resolved. Cardiomopathy with reduced EF Tachycardia for past 2-3 days, despite recent increase in Bblocker use Hiatal hernia HTN Hyperlipidemia DM for 25 yrs Plan increase coreg awating zoll vest placement today if remeains well plan on dc home today with VNS
[2016-12-16] MEDS ORDERED: CARVEDILOL 25 MG TABLET (FP) PO SCH (10:00)
[2016-12-16] MEDS ORDERED: LISINOPRIL 10 MG TABLET (FP) PO SCH (10:00)
[2016-12-16] MEDS: ASPIRIN COATED 81 MG TABLET.EC PO SCH (10:33)
[2016-12-16] MEDS: ENOXAPARIN NA (PORCINE) 40 MG/0.4 ML DISP.SYRIN SQ SCH (10:33)
[2016-12-16] MEDS: SPIRONOLACTONE 25 MG TABLET (FP) PO SCH (10:34)
--- NOTE | 2016-12-16 17:54 | DS ---
Physical Examination Vital Signs: Vital Signs Temperature 98.6 F 12/16/16 14:18 Pulse Rate 71 12/16/16 14:18 Respiratory Rate 20 12/16/16 14:18 Blood Pressure 147/70 12/16/16 14:18 O2 Sat by Pulse Oximetry (%) 98 12/16/16 09:00 Constitutional: Yes: No Distress Eyes: Yes: Conjunctiva Clear HENT: Yes: Normocephalic Neck: Yes: Trachea Midline Cardiovascular: Yes: Regular Rate and Rhythm Respiratory: Yes: CTA Bilaterally Gastrointestinal: Yes: Normal Bowel Sounds, Soft Edema: No Neurological: Yes: WNL Labs: CBC, BMP 12/16/16 05:35 12/16/16 05:35 Discharge Summary Reason For Visit: ISCHEMIA,MYOCARDIAL INFARCTION,NAUSEAU AND VOMITIN Current Active Problems Diabetes (Acute) Dilated cardiomyopathy (Acute) [place] cardiac risk >20% in next 10 years (Acute) HTN (hypertension) (Acute) Hypercholesterolemia (Acute) Ischemia (Acute) Morbid obesity (Acute) Myocardial infarction (Acute) Nausea & vomiting (Acute) Hospital Course: Admitted for intractable nausea and vomiting. CT abd/pelvis was unremarkable, pancreas enzymes, LFTs wer normal However pt had elevated troponin with normal CPK. Was admitted to telemetry to r/o ACS and for monitoring. Echo and Nuclear stress test showed no ischemia, but global hypokinesia and reduced EF ~37 Clinically pt improved with gentle hydration, zofran, PPI and meclizine, however developed asymptomatic tachycardia. CTA was negative for PE and BBlocker was increased. Was recommended to receive a zoll vest until repeat cardiac evaluation in 1-2 months time. Also her cardiac medications were adjusted. Currently she is asymptomatic and medically stable to go home with VNS and close oupt follow up. Condition: Fair - Instructions Diet, Activity, Other Instructions: f/up with dr. Wyatt next week, dr Burnette in 2 weeks Disposition: VNS/HOME HEALTH CARE - Home Medications Comprehensive Discharge Medication List: Ambulatory Orders Glyburide [Micronase -] 10 mg PO BID 12/10/16 Insulin NPH Human Isophane [Humulin N] 12 unit SQ BID 12/10/16 Metformin HCl [Glucophage -] 850 mg PO TID 12/10/16 Omeprazole 20 mg PO PRN 12/10/16 Simvastatin 20 mg PO HS 12/10/16 Carvedilol [Coreg -] 25 mg PO BID tablet 12/16/16 Lisinopril [Prinivil] 10 mg PO DAILY tablet 12/16/16 Spironolactone [Aldactone -] 25 mg PO DAILY tablet 12/16/16
[2016-12-16 19:07] VITALS: BP 144/67; PULSE 89; TEMP 99.4
== END 2016-12-16 19:06 | disposition home health service (06) | DRG 315 ==
LOC: JER 20:05 → JERBED 12-11 01:25 → J4W 12-11 20:12
PROVIDERS: ADMIT Internal Medicine; ATTEND Internal Medicine
DX: I42.0 Dilated cardiomyopathy (principal); Z68.41 Body mass index [BMI] 40.0-44.9, adult; R11.2 Nausea with vomiting, unspecified; R94.31 Abnormal electrocardiogram [ECG] [EKG]; I10 Essential (primary) hypertension; R74.8 Abnormal levels of other serum enzymes; E11.9 Type 2 diabetes mellitus without complications; Z79.4 Long term (current) use of insulin; I99.8 Other disorder of circulatory system; H40.9 Unspecified glaucoma; F17.210 Nicotine dependence, cigarettes, uncomplicated; E66.01 Morbid (severe) obesity due to excess calories; R00.0 Tachycardia, unspecified; Z71.3 Dietary counseling and surveillance; K21.9 Gastro-esophageal reflux disease without esophagitis; J44.9 Chronic obstructive pulmonary disease, unspecified; E88.81 Metabolic syndrome and other insulin resistance
CPT/HCPCS: 36415; 71010-TC; 71260-TC; 74176-TC; 76705-TC; 78452-TC; 80053; 80061; 82550; 82553; 83036; 83690; 83721; 83735; 84443; 84484; 85025; 85610; 93005; 93010; 93017; 93306-TC; 97116-GP; 97162; 99283-25; A9502; J1245

== ENCOUNTER 2018-07-13 12:24 | Emergency (ER) | payer OTHER, BC ==
[2018-07-13 12:51] VITALS: BP 136/72; PULSE 84; TEMP 97.6; BMI 44.9
--- NOTE | 2018-07-13 14:16 | PDOC ---
*Physical Exam - Vital Signs Last Vital Signs Temp Pulse Resp BP Pulse Ox 97.6 F 84 22 H 136/72 97 07/13/18 12:45 07/13/18 12:45 07/13/18 12:45 07/13/18 12:45 07/13/18 12:45 ED Treatment Course - LABORATORY CBC & Chemistry Diagram: 07/13/18 15:00 07/13/18 15:00 Medical Decision Making - Medical Decision Making 07/13/18 16:47 Ms Steele presents to the ER with a complaint of left arm pain Pt has pain with arm movement EKG: NSR rate of 83 bpm, axis nml, intervals nml, no st elevation or depression Pt seen by Midlevel Provider under my direct supervision Laboratory Tests 07/13/18 15:00 Creatine Kinase 154 Creatine Kinase Index 1.6 CK-MB (CK-2) 2.6 Troponin I < 0.02 Ancillary studies reviewed I agree with plan as outlined by Midlevel Provider 07/14/18 11:26 *DC/Admit/Observation/Transfer Diagnosis at time of Disposition: Cervical radicular pain - Discharge Dispostion Disposition: HOME Condition at time of disposition: Stable - Prescriptions Prescriptions: Methylprednisolone [Medrol -] 4 mg PO ASDIR #21 tablet traMADol HCL [Ultram -] 50 mg PO BID #10 tablet MDD 2 - Referrals Referrals: Shun Galindo DO [Staff Physician] - Arturo Wyatt MD [Primary Care Provider] - - Patient Instructions Printed Discharge Instructions: DI for Cervical Radiculopathy Additional Instructions: Your lab work and EKG were normal today. Your x-ray did not show any evidence of fracture. He most likely have cervical radiculopathy or nerve pain from the neck. It is normal that the pain goes down the arm with this diagnosis. Please take the prednisone as directed. He may take the tramadol twice a day as needed for breakthrough pain. Follow-up with her primary care doctor this week. Your also given a referral to see orthopedics. Follow-up with them appear symptoms are not getting better. Return to the ER for numbness and tingling of the extremities, increased pain despite treatment, headaches, or if you have any changes in your symptoms. - Post Discharge Activity
[2018-07-13] MEDS ORDERED: traMADol HCL 50 MG TABLET PO ONE (14:50)
--- NOTE | 2018-07-13 14:50 | PDOC ---
History of Present Illness - General Chief Complaint: Pain Stated Complaint: LT ARM/NECK PAIN Time Seen by Provider: 07/13/18 14:14 History Source: Patient Exam Limitations: No Limitations Past History - Travel Traveled outside of the country in the last 30 days: No Close contact w/someone who was outside of country & ill: No - Past Medical History Allergies/Adverse Reactions: Allergies Allergy/AdvReac Type Severity Reaction Status Date / Time No Known Allergies Allergy Verified 07/13/18 12:38 Home Medications: Ambulatory Orders Glyburide [Micronase -] 10 mg PO BID 12/10/16 Insulin NPH Human Isophane [Humulin N] 12 unit SQ BID 12/10/16 Omeprazole 20 mg PO PRN 12/10/16 Simvastatin 20 mg PO HS 12/10/16 metFORMIN HCL [Glucophage -] 850 mg PO TID 12/10/16 Carvedilol [Coreg -] 25 mg PO BID tablet 12/16/16 Spironolactone [Aldactone -] 25 mg PO DAILY tablet 12/16/16 Furosemide [Lasix -] 20 mg PO DAILY 07/13/18 Ibuprofen [Ibu] 800 mg PO TID PRN 07/13/18 Isosorbide Mononitrate [Imdur -] 30 mg PO DAILY 07/13/18 Lisinopril [Prinivil] 20 mg PO DAILY 07/13/18 Methylprednisolone [Medrol -] 4 mg PO ASDIR #21 tablet 07/13/18 traMADol HCL [Ultram -] 50 mg PO BID #10 tablet MDD 2 07/13/18 Anemia: No Asthma: No Cancer: No Cardiac Disorders: Yes (CAD) CVA: No COPD: No CHF: No Dementia: No Diabetes: Yes GI Disorders: No Disorders: No HTN: Yes Hypercholesterolemia: Yes Liver Disease: No Seizures: No Thyroid Disease: No - Surgical History Abdominal Surgery: No Appendectomy: Yes Cardiac Surgery: No Cholecystectomy: No Lung Surgery: No Neurologic Surgery: No Orthopedic Surgery: No - Suicide/Smoking/Psychosocial Hx Smoking History: Never smoked Have you smoked in the past 12 months: Yes Number of Cigarettes Smoked Daily: 10 Hx Alcohol Use: No Drug/Substance Use Hx: No Substance Use Type: None Hx Substance Use Treatment: No Review of Systems - Review of Systems Able to Perform ROS?: Yes Comments:: 07/13/18 17:39 CONSTITUTIONAL: Absent: fever, chills, diaphoresis, generalized weakness, malaise, loss of appetite HEENT: Absent: rhinorrhea, nasal congestion, throat pain, throat swelling, difficulty swallowing, mouth swelling, ear pain, eye pain, visual Changes CARDIOVASCULAR: Absent: chest pain, loss of consciousness, palpitations, irregular heart rate, peripheral edema RESPIRATORY: Absent: cough, shortness of breath, dyspnea with exertion, orthopnea, wheezing, stridor, hemoptysis GASTROINTESTINAL: Absent: abdominal pain, abdominal distension, nausea, vomiting, diarrhea, constipation, melena, hematochezia GENITOURINARY: Absent: dysuria, frequency, urgency, hesitancy, hematuria, flank pain, genital pain MUSCULOSKELETAL: Absent: myalgia, arthralgia, joint swelling SKIN: Absent: rash, itching, pallor HEMATOLOGIC/IMMUNOLOGIC: Absent: easy bleeding, easy bruising, lymphadenopathy, frequent infections ENDOCRINE: Absent: unexplained weight gain, unexplained weight loss, heat intolerance, cold intolerance NEUROLOGIC: Absent: headache, focal weakness or paresthesias, dizziness, unsteady gait, seizure, mental status changes, bladder or bowel incontinence PSYCHIATRIC: Absent: anxiety, depression, suicidal or homicidal ideation, hallucinations. Is the patient limited Malagasy proficient: No *Physical Exam - Vital Signs Last Vital Signs Temp Pulse Resp BP Pulse Ox 97.6 F 84 22 H 136/72 97 07/13/18 12:45 07/13/18 12:45 07/13/18 12:45 07/13/18 12:45 07/13/18 12:45 - Physical Exam Comments: 07/13/18 17:39 GENERAL: Well developed, well nourished. Awake and alert. No acute distress. HEENT: Normocephalic, atraumatic. PERRLA, EOMI. No conjunctival pallor. Sclera are non- icteric. Moist mucous membranes. Oropharynx is clear. NECK: Supple. Full ROM. No JVD. Carotid pulses 2+ and symmetric, without bruits. No thyromegaly. No lymphadenopathy. CARDIOVASCULAR: Regular rate and rhythm. No murmurs, rubs, or gallops. Distal pulses are 2+ and symmetric. PULMONARY: No evidence of respiratory distress. Lungs clear to auscultation bilaterally. No wheezing, rales or rhonchi. ABDOMINAL: Soft. Non-tender. Non-distended. No rebound or guarding. No organomegaly. Normoactive bowel sounds. MUSCULOSKELETAL Normal range of motion at all joints. No bony deformities or tenderness. No CVA tenderness. EXTREMITIES: No cyanosis. No clubbing. No edema. No calf tenderness. SKIN: Warm and dry. Normal capillary refill. No rashes. No jaundice. NEUROLOGICAL: Alert, awake, appropriate. Cranial nerves 2-12 intact. No deficits to light touch and temperature in face, upper extremities and lower extremities. No motor deficits in the in face, upper extremities and lower extremities. Normoreflexic in the upper and lower extremities. Normal speech. Toes are down- going bilaterally. Gait is normal without ataxia. PSYCHIATRIC: Cooperative. Good eye contact. Appropriate mood and affect. Moderate Sedation - Procedure Monitoring Vital Signs: Procedure Monitoring Vital Signs Temperature 97.6 F 07/13/18 12:45 Pulse Rate 84 07/13/18 12:45 Respiratory Rate 22 H 07/13/18 12:45 Blood Pressure 136/72 07/13/18 12:45 O2 Sat by Pulse Oximetry (%) 97 07/13/18 12:45 ED Treatment Course - LABORATORY CBC & Chemistry Diagram: 07/13/18 15:00 07/13/18 15:00 *DC/Admit/Observation/Transfer Diagnosis at time of Disposition: Cervical radicular pain - Discharge Dispostion Disposition: HOME Condition at time of disposition: Stable Decision to Admit order: No - Referrals Referrals: Arturo Wyatt MD [Primary Care Provider] - Shun Galindo DO [Staff Physician] - - Patient Instructions Printed Discharge Instructions: DI for Cervical Radiculopathy Additional Instructions: Your lab work and EKG were normal today. Your x-ray did not show any evidence of fracture. He most likely have cervical radiculopathy or nerve pain from the neck. It is normal that the pain goes down the arm with this diagnosis. Please take the prednisone as directed. He may take the tramadol twice a day as needed for breakthrough pain. Follow-up with her primary care doctor this week. Your also given a referral to see orthopedics. Follow-up with them appear symptoms are not getting better. Return to the ER for numbness and tingling of the extremities, increased pain despite treatment, headaches, or if you have any changes in your symptoms. - Post Discharge Activity
[2018-07-13] MEDS ORDERED: traMADol HCL 50 MG TABLET ONE (15:18)
[2018-07-13 15:35] LABS: BASO % 1.2 % (0-2.0); EOS % 0.7 % (0-4.5); HEMATOCRIT 35.7 % (32.4-45.2); HEMOGLOBIN 12.1 GM/dL (10.7-15.3); LYMPH % 42.7 % (8-40); MCH 31.3 pg (25.7-33.7); MCHC 33.9 g/dl (32.0-36.0); MEAN CELL VOLUME 92.4 fl (80-96); MEAN PLT VOLUME 7.2 fl (7.5-11.1); MONO % 4.6 % (3.8-10.2); NEUT % 50.8 % (42.8-82.8); PLATELET COUNT 315 K/MM3 (134-434); RBC 3.87 M/mm3 (3.60-5.2); RDW 13.9 % (11.6-15.6); WHITE BLOOD COUNT 8.5 K/mm3 (4.0-10.0)
[2018-07-13 16:16] LABS: ALBUMIN 3.6 g/dl (3.4-5.0); ALK PHOS 97 U/L (45-117); ANION GAP 8 MMOL/L (8-16); BILIRUBIN,TOTAL 0.4 mg/dL (0.2-1); BLOOD UREA NITROGEN 12 mg/dL (7-18); CALCIUM 9.5 mg/dL (8.5-10.1); CHLORIDE 104 mmol/L (98-107); CO2 25 mmol/L (21-32); GLUCOSE,RANDOM 211 mg/dL (74-106); POTASSIUM 4.3 mmol/L (3.5-5.1); SGOT/AST 14 U/L (15-37); SGPT/ALT 20 U/L (13-61); SODIUM 137 mmol/L (136-145); TOT PROT 7.4 g/dl (6.4-8.2)
--- NOTE | 2018-07-13 18:58 | EKG ---
Test Reason : Blood Pressure : / mmHG Vent. Rate : 083 BPM Atrial Rate : 083 BPM P-R Int : 184 ms QRS Dur : 082 ms QT Int : 386 ms P-R-T Axes : 045 -05 -09 degrees QTc Int : 453 ms NORMAL SINUS RHYTHM MINIMAL VOLTAGE CRITERIA FOR LVH, MAY BE NORMAL VARIANT T WAVE ABNORMALITY, CONSIDER ANTEROLATERAL ISCHEMIA ABNORMAL ECG WHEN COMPARED WITH ECG OF 12-DEC-2016 09:51, NONSPECIFIC T WAVE ABNORMALITY HAS REPLACED INVERTED T WAVES IN INFERIOR LEADS Confirmed by VINICIO MCCONNELL, ULISES ([id number]) on 07/13/2018 6:58:14 PM Referred By: Confirmed By:ULISES MOONEY MD
== END 2018-07-13 18:03 | disposition home or self-care (01) ==
LOC: JER 12:24
DX: M54.12 Radiculopathy, cervical region (principal); I25.10 Atherosclerotic heart disease of native coronary artery without angina pectoris; I10 Essential (primary) hypertension; E11.9 Type 2 diabetes mellitus without complications; Z79.4 Long term (current) use of insulin; Z79.84 Long term (current) use of oral hypoglycemic drugs
CPT/HCPCS: 36415; 72050-TC-FY; 73030-TC-LT-FY; 80053; 82550; 82553; 84484; 85025; 93005; 93010; 99283-25

== ENCOUNTER 2021-06-07 12:50 | Inpatient (IN) | payer OTHER, BC ==
[2021-06-07] MEDS ORDERED: METHOCARBAMOL 500 MG TABLET PO ONE (14:52)
[2021-06-07] MEDS ORDERED: NAPROXEN 500 MG TABLET PO ONE (14:53)
[2021-06-07] MEDS ORDERED: IBUPROFEN 400 MG TABLET (FP) PO ONE (14:55)
[2021-06-07] MEDS ORDERED: ACETAMINOPHEN 1000 MG/100 ML VIAL IVPB ONE (15:00)
[2021-06-07] MEDS ORDERED: ACETAMINOPHEN INJECTION 100 ML IVPB ONE (15:25)
[2021-06-07] MEDS ORDERED: METHOCARBAMOL 500 MG TABLET ONE (15:25)
[2021-06-07 16:21] LABS: BASO % 0.8 % (0-2.0); EOS % 0.2 % (0-4.5); HEMATOCRIT 41.5 % (32.4-45.2); HEMOGLOBIN 13.6 GM/dL (10.7-15.3); LYMPH % 49.2 % (8-40); MCH 30.9 pg (25.7-33.7); MCHC 32.7 g/dl (32.0-36.0); MEAN CELL VOLUME 94.5 fl (80-96); MEAN PLT VOLUME 7.9 fl (7.5-11.1); MONO % 6.3 % (3.8-10.2); NEUT % 43.5 % (42.8-82.8); PLATELET COUNT 418 10^3/uL (134-434); RBC 4.39 M/mm3 (3.60-5.2); RDW 13.2 % (11.6-15.6); WHITE BLOOD COUNT 10.7 K/mm3 (4.0-10.0)
[2021-06-07 16:35] LABS: ALBUMIN 3.7 g/dl (3.4-5.0)
[2021-06-07 16:38] LABS: CREATININE 1.9 mg/dL (0.55-1.3)
[2021-06-07 16:40] LABS: BILIRUBIN,TOTAL 0.8 mg/dL (0.2-1); TOT PROT 8.2 g/dl (6.4-8.2)
[2021-06-07] MEDS ORDERED: SODIUM CHLORIDE 500 ML IV STA (16:48)
[2021-06-07 17:20] LABS: EPI CELLS 9 /uL (0-25.1); HYALINE CASTS 11 /uL (0-3.1); URINE APPEARANCE CLOUDY; URINE BACTERIA 2835 /uL (0-1359); URINE BILIRUBIN 2+ (NEGATIVE); URINE COLOR DK YELLOW; URINE GLUCOSE (UA) NEGATIVE (NEGATIVE); URINE KETONE 1+ (NEGATIVE); URINE LEUK ESTERASE 1+ (NEGATIVE); URINE NITRITE NEGATIVE (NEGATIVE); URINE PROTEIN 1+ (NEGATIVE); URINE RBC 5 /uL (0-23.9); URINE WBC 151 /uL (0-25.8)
[2021-06-07] MEDS ORDERED: ONDANSETRON 4 MG/2 ML VIAL IVPUSH ONE (19:29)
[2021-06-07] MEDS ORDERED: CEFTRIAXONE 1,000 MG in DEXTROSE 5%-WATER - 50 ML IVPB ONE (19:29)
[2021-06-07] MEDS ORDERED: ONDANSETRON 4 MG/2 ML VIAL ONE (20:28)
[2021-06-07] MEDS ORDERED: CEFTRIAXONE 1 GM/50 ML BAG ONE (20:28)
[2021-06-07] MEDS ORDERED: POLYETHYLENE GLYCOL 3350 119 GM BTL PO PRN (21:03)
[2021-06-07] MEDS ORDERED: INSULIN SLIDING SCALE (NOVOLOG) 1 VIAL SQ SCH (22:00)
[2021-06-07 22:22] LABS: MAGNESIUM 1.8 mg/dL (1.8-2.4)
[2021-06-08] MEDS ORDERED: CARVEDILOL 12.5 MG TABLET (FP) ONE (01:35)
[2021-06-08] MEDS: CARVEDILOL 25 MG TABLET (FP) PO SCH ×2 (01:45→09:38)
[2021-06-08] MEDS ORDERED: PANTOPRAZOLE SODIUM 40 MG VIAL IVPUSH ONE (03:19)
[2021-06-08] MEDS ORDERED: ACETAMINOPHEN 325 MG TABLET (FP) PO PRN (03:21)
[2021-06-08 03:42] VITALS: BMI 39.5
[2021-06-08] MEDS ORDERED: POLYETHYLENE GLYCOL (HEALTHYLAX) 3350 17 GM PACKET PO PRN (03:50)
[2021-06-08] MEDS ORDERED: INSULIN SLIDING SCALE (NOVOLOG) 1 VIAL SQ SCH (03:51)
[2021-06-08] MEDS: ONDANSETRON 4 MG/2 ML VIAL IVPUSH PRN (04:00)
[2021-06-08] MEDS: HEPARIN NA (PORCINE) 5,000 UNITS/ML 1ML VIAL SQ SCH ×3 (06:53→21:33)
[2021-06-08] MEDS: INSULIN SLIDING SCALE (NOVOLOG) 1 VIAL SQ SCH ×4 (06:54→21:33)
[2021-06-08 07:02] LABS: BASO % 0.3 % (0-2.0); EOS % 0.3 % (0-4.5); HEMOGLOBIN 12.4 GM/dL (10.7-15.3); LYMPH % 45.8 % (8-40); MCH 31.1 pg (25.7-33.7); MCHC 32.7 g/dl (32.0-36.0); MEAN PLT VOLUME 7.6 fl (7.5-11.1); MONO % 7.7 % (3.8-10.2); NEUT % 45.9 % (42.8-82.8); PLATELET COUNT 323 10^3/uL (134-434); RBC 3.99 M/mm3 (3.60-5.2); RDW 13.4 % (11.6-15.6); WHITE BLOOD COUNT 8.2 K/mm3 (4.0-10.0)
[2021-06-08] MEDS: PROCHLORPERAZINE INJECTION 10 MG/2 ML VIAL IM PRN ×2 (09:37→17:54)
[2021-06-08] MEDS: ISOSORBIDE MONONITRATE 30 MG TAB.SR.24H (FP) PO SCH (09:38)
[2021-06-08] MEDS: ASPIRIN COATED 81 MG TABLET.EC PO SCH (09:38)
[2021-06-08] MEDS ORDERED: LISINOPRIL 20 MG TABLET PO SCH (10:00)
[2021-06-08] MEDS ORDERED: FUROSEMIDE 20 MG TABLET (FP) PO SCH (10:00)
[2021-06-08] MEDS ORDERED: SPIRONOLACTONE 25 MG TABLET PO SCH (10:00)
[2021-06-08] MEDS ORDERED: DEXTROSE 5%-WATER - 50 ML IVPB ONE (17:44)
[2021-06-08] MEDS ORDERED: PIPERACILLIN/TAZOBACTAM 3.375 GM VIAL IVPB ONE (17:44)
[2021-06-08] MEDS: PIPERACILLIN/TAZOB 3.375 GM 3.375 GM in DEXTROSE 5%-WATER - 50 ML IVPB SCH (18:00)
[2021-06-08 19:55] LABS: BLOOD UREA NITROGEN 41.4 mg/dL (7-18); CALCIUM 9.5 mg/dL (8.5-10.1); CREATININE 1.5 mg/dL (0.55-1.3)
[2021-06-08] MEDS ORDERED: INSULIN (NOVOLOG) ASPART 100 UNITS/ML 10ML VIAL ONE (21:12)
[2021-06-09] MEDS ORDERED: DEXTROSE 5%-WATER - 50 ML IVPB ONE ×3 (00:52→16:04)
[2021-06-09] MEDS ORDERED: PIPERACILLIN/TAZOBACTAM 3.375 GM VIAL IVPB ONE ×3 (00:52→16:04)
[2021-06-09] MEDS: PIPERACILLIN/TAZOB 3.375 GM 3.375 GM in DEXTROSE 5%-WATER - 50 ML IVPB SCH ×3 (01:18→17:00)
[2021-06-09] MEDS: HEPARIN NA (PORCINE) 5,000 UNITS/ML 1ML VIAL SQ SCH ×3 (06:24→21:47)
[2021-06-09] MEDS: INSULIN SLIDING SCALE (NOVOLOG) 1 VIAL SQ SCH ×4 (06:24→21:47)
[2021-06-09 07:36] LABS: HEMATOCRIT 35.3 % (32.4-45.2); HEMOGLOBIN 11.7 GM/dL (10.7-15.3); MCHC 33.3 g/dl (32.0-36.0); MEAN CELL VOLUME 93.1 fl (80-96); MEAN PLT VOLUME 7.7 fl (7.5-11.1); PLATELET COUNT 323 10^3/uL (134-434); RBC 3.79 M/mm3 (3.60-5.2); RDW 13.3 % (11.6-15.6); WHITE BLOOD COUNT 7.2 K/mm3 (4.0-10.0)
[2021-06-09] MEDS: PANTOPRAZOLE 40 MG TABLET PO SCH (09:32)
[2021-06-09] MEDS: ASPIRIN COATED 81 MG TABLET.EC PO SCH (09:32)
[2021-06-09] MEDS: ISOSORBIDE MONONITRATE 30 MG TAB.SR.24H (FP) PO SCH (09:32)
[2021-06-09 10:13] LABS: ALBUMIN 2.9 g/dl (3.4-5.0); BILIRUBIN,TOTAL 0.8 mg/dL (0.2-1); CALCIUM 9.3 mg/dL (8.5-10.1); CREATININE 1.5 mg/dL (0.55-1.3); TOT PROT 6.6 g/dl (6.4-8.2)
[2021-06-09] MEDS ORDERED: PT OWN MED DRAWER 7, Y5N ONE (11:51)
[2021-06-09] MEDS: CARVEDILOL 25 MG TABLET (FP) PO SCH ×2 (12:00→21:47)
[2021-06-09] MEDS: ONDANSETRON 4 MG/2 ML VIAL IVPUSH PRN (19:19)
[2021-06-10] MEDS ORDERED: PIPERACILLIN/TAZOBACTAM 3.375 GM VIAL IVPB ONE ×3 (00:53→16:44)
[2021-06-10] MEDS ORDERED: DEXTROSE 5%-WATER - 50 ML IVPB ONE ×3 (00:54→16:44)
[2021-06-10] MEDS: PIPERACILLIN/TAZOB 3.375 GM 3.375 GM in DEXTROSE 5%-WATER - 50 ML IVPB SCH ×3 (01:07→17:17)
[2021-06-10] MEDS: HEPARIN NA (PORCINE) 5,000 UNITS/ML 1ML VIAL SQ SCH ×3 (05:52→21:28)
[2021-06-10] MEDS: ONDANSETRON 4 MG/2 ML VIAL IVPUSH PRN ×3 (05:53→21:36)
[2021-06-10] MEDS: INSULIN SLIDING SCALE (NOVOLOG) 1 VIAL SQ SCH ×4 (06:07→21:34)
[2021-06-10] MEDS: PANTOPRAZOLE 40 MG TABLET PO SCH (10:09)
[2021-06-10] MEDS: CARVEDILOL 25 MG TABLET (FP) PO SCH ×2 (10:09→21:28)
[2021-06-10] MEDS: ASPIRIN COATED 81 MG TABLET.EC PO SCH (10:09)
[2021-06-10] MEDS: ISOSORBIDE MONONITRATE 30 MG TAB.SR.24H (FP) PO SCH (10:09)
[2021-06-10] MEDS ORDERED: POLYETHYLENE GLYCOL (HEALTHYLAX) 3350 17 GM PACKET PO PRN (14:49)
[2021-06-10] MEDS ORDERED: ACETAMINOPHEN 325 MG TABLET (FP) PO PRN (14:49)
[2021-06-10] MEDS ORDERED: PROCHLORPERAZINE INJECTION 10 MG/2 ML VIAL IM ONE (22:33)
[2021-06-11] MEDS ORDERED: PIPERACILLIN/TAZOBACTAM 3.375 GM VIAL IVPB ONE ×3 (02:31→17:44)
[2021-06-11] MEDS ORDERED: DEXTROSE 5%-WATER - 50 ML IVPB ONE ×3 (02:32→17:44)
[2021-06-11] MEDS: PIPERACILLIN/TAZOB 3.375 GM 3.375 GM in DEXTROSE 5%-WATER - 50 ML IVPB SCH ×3 (02:59→17:47)
[2021-06-11] MEDS: HEPARIN NA (PORCINE) 5,000 UNITS/ML 1ML VIAL SQ SCH ×3 (06:43→21:40)
[2021-06-11] MEDS: INSULIN SLIDING SCALE (NOVOLOG) 1 VIAL SQ SCH ×4 (06:45→21:42)
[2021-06-11 08:27] LABS: HEMATOCRIT 35.2 % (32.4-45.2); HEMOGLOBIN 11.7 GM/dL (10.7-15.3); MCHC 33.1 g/dl (32.0-36.0); MEAN CELL VOLUME 93.7 fl (80-96); MEAN PLT VOLUME 7.4 fl (7.5-11.1); PLATELET COUNT 323 10^3/uL (134-434); RBC 3.76 M/mm3 (3.60-5.2); RDW 13.5 % (11.6-15.6); WHITE BLOOD COUNT 7.3 K/mm3 (4.0-10.0)
[2021-06-11] MEDS ORDERED: PT OWN MED DRAWER 7, Y5N ONE (10:03)
[2021-06-11] MEDS: ISOSORBIDE MONONITRATE 30 MG TAB.SR.24H (FP) PO SCH (10:12)
[2021-06-11] MEDS: CARVEDILOL 25 MG TABLET (FP) PO SCH ×2 (10:12→21:39)
[2021-06-11] MEDS: ASPIRIN COATED 81 MG TABLET.EC PO SCH (10:12)
[2021-06-11] MEDS: PANTOPRAZOLE 40 MG TABLET PO SCH (10:13)
[2021-06-11] MEDS ORDERED: INSULIN (NOVOLOG) ASPART 100 UNITS/ML 10ML VIAL ONE ×2 (11:34→16:37)
[2021-06-11 12:02] LABS: ALBUMIN 2.8 g/dl (3.4-5.0); BILIRUBIN,TOTAL 0.8 mg/dL (0.2-1); BLOOD UREA NITROGEN 25.1 mg/dL (7-18); CALCIUM 9.2 mg/dL (8.5-10.1); CREATININE 1.6 mg/dL (0.55-1.3); TOT PROT 6.5 g/dl (6.4-8.2)
[2021-06-11] MEDS ORDERED: POTASSIUM CHLORIDE TABS 20 MEQ TABLET.ER (FP) PO ONE (17:13)
[2021-06-11] MEDS: ONDANSETRON 4 MG/2 ML VIAL IVPUSH PRN (21:41)
[2021-06-12] MEDS ORDERED: PIPERACILLIN/TAZOBACTAM 3.375 GM VIAL IVPB ONE (02:40)
[2021-06-12] MEDS ORDERED: DEXTROSE 5%-WATER - 50 ML IVPB ONE (02:40)
[2021-06-12] MEDS: PIPERACILLIN/TAZOB 3.375 GM 3.375 GM in DEXTROSE 5%-WATER - 50 ML IVPB SCH (02:43)
[2021-06-12] MEDS: HEPARIN NA (PORCINE) 5,000 UNITS/ML 1ML VIAL SQ SCH ×3 (06:15→21:22)
[2021-06-12] MEDS: INSULIN SLIDING SCALE (NOVOLOG) 1 VIAL SQ SCH ×4 (06:16→21:22)
[2021-06-12 09:16] LABS: BLOOD UREA NITROGEN 16.9 mg/dL (7-18); CALCIUM 9.6 mg/dL (8.5-10.1)
[2021-06-12] MEDS ORDERED: INSULIN (NOVOLOG) ASPART 100 UNITS/ML 10ML VIAL ONE (09:19)
[2021-06-12 09:20] LABS: CREATININE 1.5 mg/dL (0.55-1.3)
[2021-06-12] MEDS: CARVEDILOL 25 MG TABLET (FP) PO SCH ×2 (09:45→21:22)
[2021-06-12] MEDS: ASPIRIN COATED 81 MG TABLET.EC PO SCH (09:46)
[2021-06-12] MEDS: PANTOPRAZOLE 40 MG TABLET PO SCH (09:46)
[2021-06-12] MEDS: ISOSORBIDE MONONITRATE 30 MG TAB.SR.24H (FP) PO SCH (09:46)
[2021-06-12] MEDS: METOCLOPRAMIDE HCL 10 MG TABLET (FP) PO SCH ×2 (12:32→17:14)
[2021-06-12] MEDS: glyBURIDE 5 MG TABLET PO SCH (17:13)
[2021-06-13] MEDS ORDERED: PT OWN MED DRAWER 7, Y5N ONE (06:00)
[2021-06-13] MEDS: HEPARIN NA (PORCINE) 5,000 UNITS/ML 1ML VIAL SQ SCH (06:06)
[2021-06-13] MEDS: INSULIN SLIDING SCALE (NOVOLOG) 1 VIAL SQ SCH ×2 (06:06→11:02)
[2021-06-13] MEDS: METOCLOPRAMIDE HCL 10 MG TABLET (FP) PO SCH ×2 (06:07→10:35)
[2021-06-13] MEDS: glyBURIDE 5 MG TABLET PO SCH (06:07)
[2021-06-13] MEDS: PANTOPRAZOLE 40 MG TABLET PO SCH (10:34)
[2021-06-13] MEDS: ISOSORBIDE MONONITRATE 30 MG TAB.SR.24H (FP) PO SCH (10:35)
[2021-06-13] MEDS: ASPIRIN COATED 81 MG TABLET.EC PO SCH (10:35)
[2021-06-13] MEDS: CARVEDILOL 25 MG TABLET (FP) PO SCH (10:35)
[2021-06-13 10:37] VITALS: BP 132/77; PULSE 81; TEMP 98.6
== END 2021-06-13 13:48 | disposition home or self-care (01) | DRG 690 ==
LOC: JER 12:50 → JERBED 19:45 → OBSVTOIN 21:03 → J4W 06-08 02:34 → J8W 06-10 14:48
PROVIDERS: ADMIT Internal Medicine; ATTEND Internal Medicine
DX: N10 Acute pyelonephritis (principal); N17.9 Acute kidney failure, unspecified; E11.9 Type 2 diabetes mellitus without complications; E66.9 Obesity, unspecified; Z68.39 Body mass index [BMI] 39.0-39.9, adult; I25.10 Atherosclerotic heart disease of native coronary artery without angina pectoris; M54.50 Low back pain, unspecified; R79.89 Other specified abnormal findings of blood chemistry; M51.37 Other intervertebral disc degeneration, lumbosacral region; R94.31 Abnormal electrocardiogram [ECG] [EKG]; D72.829 Elevated white blood cell count, unspecified; M54.42 Lumbago with sciatica, left side; I11.0 Hypertensive heart disease with heart failure; I50.9 Heart failure, unspecified; Z79.4 Long term (current) use of insulin
CPT/HCPCS: 36415; 71045-TC-FY; 76775-TC; 80048; 80053; 81003; 82962; 83735; 84484; 85025; 85027; 87040; 87086; 87186; 93005; 93010; 99285-25; C9803; G0378; J0131; J1644; U0003; U0005